=== PATIENT | male | born 1970 | race Caucasian/White ===

== ENCOUNTER → 2017-05-31 | Outpatient (CLI) | payer OTHER ==
[~2017-05-31] MED LIST: ASPI81TA2 PO; ATOR80TA PO; CLOP75 PO; INSU100C6 SQ; ISOS30TA6 PO; METF500T4 PO; METO50 PO; PANT40TA25 PO; RANO500T3 PO; VALS80TA2 PO
[2017-05-31 09:30] LABS: BASOPHILS % (AUTO) 0.1 % (0.0-2.0); EOSINOPHILS % (AUTO) 2.5 % (1.0-6.0); HEMATOCRIT 47.3 % (41-53); HEMOGLOBIN 16.5 g/dL (13.5-17.5); LYMPHOCYTES # (AUTO) 2.3 K/uL (1.0-4.8); LYMPHOCYTES % (AUTO) 25.2 % (22.0-44.0); MEAN CORPUSCULAR HEMOGLOBIN 30.5 pg (26.0-34.0); MEAN CORPUSCULAR HGB CONC 34.9 G/dL (31.0-37.0); MEAN CORPUSCULAR VOLUME 87 fL (80-100); MONOCYTES # (AUTO) 0.6 K/uL (0.1-1.0); MONOCYTES % (AUTO) 6.6 % (2.0-9.0); NEUTROPHILS # (AUTO) 5.9 K/uL (1.8-7.7); NEUTROPHILS % (AUTO) 65.6 % (40.0-70.0); PLATELET COUNT (AUTO) 285 K/uL (150-450); RED BLOOD CELL COUNT(AUTO) 5.41 MIL/uL (4.50-5.90)
[2017-05-31 09:35] LABS: HEMOGLOBIN A1C 10.6 % (4.5-6.2)
[2017-05-31 09:53] LABS: ALANINE AMINOTRANSFERASE 32 U/L (12-78); ALBUMIN 3.6 g/dL (3.4-5.0); ANION GAP 7 mmol/L (8-16); ASPARTATE AMINOTRANSFERASE 16 U/L (15-37); BILIRUBIN,TOTAL 0.7 mg/dL (0.1-1.0); CALCIUM, TOTAL 9.6 mg/dL (8.8-10.5); CARBON DIOXIDE 28 mmol/L (22-29); CHLORIDE 100 mmol/L (98-107); CHOL/HDL RATIO 3.1 (4.2-7.3); CREATININE 0.98 mg/dL (0.60-1.30); GLOMERULAR FILTR. RATE CALC > 60 mL/min (>60); POTASSIUM 4.8 mmol/L (3.5-5.1); SODIUM SERUM 135 mmol/L (136-145); THYROID STIMULATING HORMONE 1.25 uIU/mL (0.36-3.74); TOTAL PROTEIN, SERUM 7.3 g/dL (6.4-8.2); UREA NITROGEN, BLOOD 17 mg/dL (7-18)
== END | disposition home or self-care (01) ==
LOC: LABMN 06:07
PROVIDERS: ATTEND Internal Medicine Cardiovascular Disease
DX: I11.0 Hypertensive heart disease with heart failure (principal); I50.9 Heart failure, unspecified; E11.8 Type 2 diabetes mellitus with unspecified complications
CPT/HCPCS: 82306; 83036; 83735; 84439; 84443

== ENCOUNTER 2017-07-01 15:28 | Emergency (ER) | payer SELFPAY ==
[~2017-07-01] VITALS: Ht 167.6 cm; Wt 100.0 kg
[2017-07-01 16:01] LABS: GLUCOSE,POINT OF CARE 487 MG/DL (70-110)
[2017-07-01] MEDS ORDERED: SODIUM CHLORIDE 0.9% 1,000 ML IV ONE (16:45)
[2017-07-01] MEDS ORDERED: ONDANSETRON HCL 4 MG/2 ML VIAL IVP ONE (16:45)
[2017-07-01 16:50] LABS: BASOPHILS % (AUTO) 0.2 % (0.0-2.0); EOSINOPHILS % (AUTO) 1.5 % (1.0-6.0); HEMATOCRIT 45.3 % (41-53); HEMOGLOBIN 15.6 g/dL (13.5-17.5); LYMPHOCYTES % (AUTO) 22.8 % (22.0-44.0); MEAN CORPUSCULAR HEMOGLOBIN 30.5 pg (26.0-34.0); MEAN CORPUSCULAR HGB CONC 34.3 G/dL (31.0-37.0); MEAN CORPUSCULAR VOLUME 89 fL (80-100); MONOCYTES # (AUTO) 0.5 K/uL (0.1-1.0); MONOCYTES % (AUTO) 5.8 % (2.0-9.0); NEUTROPHILS # (AUTO) 6.1 K/uL (1.8-7.7); NEUTROPHILS % (AUTO) 69.7 % (40.0-70.0); PLATELET COUNT (AUTO) 286 K/uL (150-450); RED CELL DISTRIBUTION WIDTH 13.1 % (11.5-14.5); WHITE BLOOD COUNT (AUTO) 8.7 K/uL (4.5-11.0)
[2017-07-01 16:58] LABS: INR 0.9 (0.9-1.1)
[2017-07-01 17:13] LABS: B-TYPE NATRIURETIC PEPTIDE 16 pg/mL (0-100)
[2017-07-01 17:14] LABS: ANION GAP 11 mmol/L (8-16); CALCIUM, TOTAL 8.8 mg/dL (8.8-10.5); CARBON DIOXIDE 23 mmol/L (22-29); CHLORIDE 99 mmol/L (98-107); CREATININE 1.29 mg/dL (0.60-1.30); GLOMERULAR FILTR. RATE CALC > 60 mL/min (>60); POTASSIUM 4.3 mmol/L (3.5-5.1); SODIUM SERUM 133 mmol/L (136-145); UREA NITROGEN, BLOOD 16 mg/dL (7-18)
[2017-07-01 17:15] LABS: ALANINE AMINOTRANSFERASE 30 U/L (12-78); ALBUMIN 3.3 g/dL (3.4-5.0); ASPARTATE AMINOTRANSFERASE 14 U/L (15-37); BILIRUBIN,TOTAL 0.6 mg/dL (0.1-1.0); CREATINE KINASE, TOTAL 138 U/L (39-308); TOTAL PROTEIN, SERUM 6.8 g/dL (6.4-8.2)
[2017-07-01 17:19] LABS: CREATINE KINASE MB 1.7 ng/mL (0-5)
[2017-07-01] MEDS ORDERED: INSULIN REGULAR, HUMAN 100 UNITS/ML IVP ONE (17:30)
[2017-07-01 18:23] LABS: GLUCOSE,POINT OF CARE 388 MG/DL (70-110)
[2017-07-01 19:20] VITALS: BP 127/71
== END 2017-07-01 19:26 | disposition home or self-care (01) ==
LOC: EMS 15:30
DX: R42 Dizziness and giddiness (principal); E11.65 Type 2 diabetes mellitus with hyperglycemia; I10 Essential (primary) hypertension; I25.10 Atherosclerotic heart disease of native coronary artery without angina pectoris; I25.2 Old myocardial infarction; E78.00 Pure hypercholesterolemia, unspecified; Z79.4 Long term (current) use of insulin; Z79.82 Long term (current) use of aspirin; Z91.018 Allergy to other foods; Z79.899 Other long term (current) drug therapy
CPT/HCPCS: 36415; 71010; 80053; 82550; 82553; 82962; 83880; 84484; 85025; 85610; 85730; 93005; 96361; 96374; 99285; J1815; J2405; J7030

== ENCOUNTER → 2017-11-01 | Outpatient (CLI) | payer OTHER ==
[~2017-11-01] MED LIST changes: -ASPI81TA2 PO; +ASPI81TA39 PO; -INSU100C6 SQ; -PANT40TA25 PO; -RANO500T3 PO
[2017-11-01 09:10] LABS: HEMOGLOBIN A1C 10.4 % (4.5-6.2)
[2017-11-01 09:14] LABS: BASOPHILS % (AUTO) 0.3 % (0.0-2.0); EOSINOPHILS % (AUTO) 2.3 % (1.0-6.0); HEMATOCRIT 47.9 % (41-53); HEMOGLOBIN 16.6 g/dL (13.5-17.5); LYMPHOCYTES # (AUTO) 2.2 K/uL (1.0-4.8); LYMPHOCYTES % (AUTO) 27.2 % (22.0-44.0); MEAN CORPUSCULAR HGB CONC 34.6 G/dL (31.0-37.0); MEAN CORPUSCULAR VOLUME 90 fL (80-100); MONOCYTES # (AUTO) 0.6 K/uL (0.1-1.0); NEUTROPHILS # (AUTO) 5.2 K/uL (1.8-7.7); NEUTROPHILS % (AUTO) 63.2 % (40.0-70.0); PLATELET COUNT (AUTO) 280 K/uL (150-450); RED BLOOD CELL COUNT(AUTO) 5.34 MIL/uL (4.50-5.90); RED CELL DISTRIBUTION WIDTH 13.1 % (11.5-14.5)
[2017-11-01 09:19] LABS: ALANINE AMINOTRANSFERASE 36 U/L (12-78); ALBUMIN 3.5 g/dL (3.4-5.0); ALKALINE PHOSPHATASE 77 U/L (46-116); ANION GAP 12 mmol/L (8-16); ASPARTATE AMINOTRANSFERASE 19 U/L (15-37); BILIRUBIN,TOTAL 0.6 mg/dL (0.1-1.0); CALCIUM, TOTAL 8.9 mg/dL (8.8-10.5); CARBON DIOXIDE 23 mmol/L (22-29); CHLORIDE 100 mmol/L (98-107); CHOL/HDL RATIO 3.5 (4.2-7.3); CHOLESTEROL 138 mg/dL (131-200); CREATININE 0.89 mg/dL (0.60-1.30); GLOMERULAR FILTR. RATE CALC > 60 mL/min (>60); GLUCOSE,RANDOM 376 mg/dL (70-110); HDL CHOLESTEROL 39 mg/dL (40-60); LDL CHOL (CALC.) 40 mg/dL (0-130); POTASSIUM 3.9 mmol/L (3.5-5.1); SODIUM SERUM 135 mmol/L (136-145); TOTAL PROTEIN, SERUM 7.2 g/dL (6.4-8.2); TRIGLYCERIDES 295 mg/dL (15-150); UREA NITROGEN, BLOOD 14 mg/dL (7-18)
== END | disposition home or self-care (01) ==
LOC: LABMN 07:58
PROVIDERS: ATTEND Internal Medicine Cardiovascular Disease
DX: I11.0 Hypertensive heart disease with heart failure (principal); I50.9 Heart failure, unspecified; E11.8 Type 2 diabetes mellitus with unspecified complications; E55.9 Vitamin D deficiency, unspecified
CPT/HCPCS: 83036

== ENCOUNTER → 2018-01-04 | Outpatient (CLI) | payer OTHER ==
[2018-01-04 07:58] LABS: BASOPHILS % (AUTO) 0.3 % (0.0-2.0); HEMOGLOBIN 15.6 g/dL (13.5-17.5); LYMPHOCYTES # (AUTO) 2.4 K/uL (1.0-4.8); MEAN CORPUSCULAR HEMOGLOBIN 30.4 pg (26.0-34.0); MEAN CORPUSCULAR HGB CONC 33.9 G/dL (31.0-37.0); MEAN CORPUSCULAR VOLUME 90 fL (80-100); MONOCYTES # (AUTO) 0.7 K/uL (0.1-1.0); MONOCYTES % (AUTO) 8.5 % (2.0-9.0); NEUTROPHILS # (AUTO) 4.5 K/uL (1.8-7.7); NEUTROPHILS % (AUTO) 58.2 % (40.0-70.0); PLATELET COUNT (AUTO) 290 K/uL (150-450); RED BLOOD CELL COUNT(AUTO) 5.13 MIL/uL (4.50-5.90); RED CELL DISTRIBUTION WIDTH 14.1 % (11.5-14.5)
[2018-01-04 08:27] LABS: ALANINE AMINOTRANSFERASE 26 U/L (12-78); ALBUMIN 3.6 g/dL (3.4-5.0); ALKALINE PHOSPHATASE 55 U/L (46-116); ANION GAP 9 mmol/L (8-16); ASPARTATE AMINOTRANSFERASE 18 U/L (15-37); BILIRUBIN,TOTAL 0.5 mg/dL (0.1-1.0); CALCIUM, TOTAL 9.5 mg/dL (8.8-10.5); CARBON DIOXIDE 28 mmol/L (22-29); CHLORIDE 105 mmol/L (98-107); CHOL/HDL RATIO 2.6 (4.2-7.3); CHOLESTEROL 116 mg/dL (131-200); CREATININE 0.87 mg/dL (0.60-1.30); FREE T4 (FREE THYROXINE) 1.08 ng/dL (0.76-1.46); GLOMERULAR FILTR. RATE CALC > 60 mL/min (>60); GLUCOSE,RANDOM 188 mg/dL (70-110); HDL CHOLESTEROL 44 mg/dL (40-60); LDL CHOL (CALC.) 42 mg/dL (0-130); POTASSIUM 4.7 mmol/L (3.5-5.1); SODIUM SERUM 142 mmol/L (136-145); THYROID STIMULATING HORMONE 2.88 uIU/mL (0.36-3.74); TRIGLYCERIDES 150 mg/dL (15-150); UREA NITROGEN, BLOOD 15 mg/dL (7-18)
[2018-01-04 14:15] LABS: HEMOGLOBIN A1C 9.4 % (4.5-6.2)
== END | disposition home or self-care (01) ==
LOC: LABPV 07:31
PROVIDERS: ATTEND Internal Medicine Cardiovascular Disease
DX: I11.0 Hypertensive heart disease with heart failure (principal); I50.9 Heart failure, unspecified; E11.8 Type 2 diabetes mellitus with unspecified complications; E55.9 Vitamin D deficiency, unspecified; D56.5 Hemoglobin E-beta thalassemia
CPT/HCPCS: 82306; 83036; 83735; 84439; 84443

== ENCOUNTER 2018-06-13 17:47 | Emergency (ER) | payer MEDICAID ==
[~2018-06-13] VITALS: Ht 170.2 cm; Wt 88.6 kg
[~2018-06-13 17:47] MED LIST changes: -METF500T4 PO; +METF500T6 PO; +NITR.4 SL
[2018-06-13 17:58] LABS: GLUCOSE,POINT OF CARE 376 MG/DL (70-110)
[2018-06-13 19:47] LABS: BASOPHILS % (AUTO) 0.4 % (0.0-2.0); EOSINOPHILS % (AUTO) 2.4 % (1.0-6.0); HEMOGLOBIN 16.4 g/dL (13.5-17.5); LYMPHOCYTES # (AUTO) 3.4 K/uL (1.0-4.8); LYMPHOCYTES % (AUTO) 37.9 % (22.0-44.0); MEAN CORPUSCULAR HEMOGLOBIN 31.5 pg (26.0-34.0); MEAN CORPUSCULAR VOLUME 90 fL (80-100); MONOCYTES # (AUTO) 0.6 K/uL (0.1-1.0); NEUTROPHILS # (AUTO) 4.6 K/uL (1.8-7.7); NEUTROPHILS % (AUTO) 52.3 % (40.0-70.0); PLATELET COUNT (AUTO) 293 K/uL (150-450); RED BLOOD CELL COUNT(AUTO) 5.22 MIL/uL (4.50-5.90); RED CELL DISTRIBUTION WIDTH 13.6 % (11.5-14.5)
[2018-06-13 20:16] LABS: CREATINE KINASE MB 1.5 ng/mL (0-5); CREATINE KINASE, TOTAL 184 U/L (39-308)
[2018-06-13] MEDS ORDERED: KETOROLAC TROMETHAMINE 60 MG/2 ML VIAL IM ONE (20:45)
[2018-06-13 20:46] LABS: C-REACTIVE PROTEIN QUANT < 0.05 mg/dL (0.00-0.30)
[2018-06-13 21:12] VITALS: BP 132/76
[2018-06-13 21:57] LABS: ERYTHROCYTE SEDIMENTATION RATE 4 MM/HR (0-15)
== END 2018-06-13 21:23 | disposition home or self-care (01) ==
LOC: EMS 17:48
DX: S76.111A Strain of right quadriceps muscle, fascia and tendon, initial encounter (principal); I25.10 Atherosclerotic heart disease of native coronary artery without angina pectoris; E11.9 Type 2 diabetes mellitus without complications; E78.00 Pure hypercholesterolemia, unspecified; I10 Essential (primary) hypertension; I25.2 Old myocardial infarction; Z91.02 Food additives allergy status; Z79.82 Long term (current) use of aspirin; Z79.84 Long term (current) use of oral hypoglycemic drugs; X58.XXXA Exposure to other specified factors, initial encounter; Y93.89 Activity, other specified; Y92.89 Other specified places as the place of occurrence of the external cause; Y99.8 Other external cause status
CPT/HCPCS: 36415; 73552; 82550; 82553; 82962; 85025; 85651; 86140; 96372; 99285; J1885

== ENCOUNTER → 2018-09-21 | Outpatient (CLI) | payer OTHER ==
[~2018-09-21] MED LIST changes: +METF-960 PO; -METF500T6 PO
[2018-09-21 09:53] LABS: BASOPHILS % (AUTO) 0.2 % (0.0-2.0); EOSINOPHILS % (AUTO) 4.2 % (1.0-6.0); HEMATOCRIT 49.3 % (41-53); HEMOGLOBIN 17.2 g/dL (13.5-17.5); LYMPHOCYTES # (AUTO) 2.6 K/uL (1.0-4.8); LYMPHOCYTES % (AUTO) 33.8 % (22.0-44.0); MEAN CORPUSCULAR HEMOGLOBIN 31.2 pg (26.0-34.0); MEAN CORPUSCULAR HGB CONC 34.9 G/dL (31.0-37.0); MEAN CORPUSCULAR VOLUME 89 fL (80-100); MONOCYTES # (AUTO) 0.5 K/uL (0.1-1.0); MONOCYTES % (AUTO) 7.2 % (2.0-9.0); NEUTROPHILS # (AUTO) 4.2 K/uL (1.8-7.7); NEUTROPHILS % (AUTO) 54.6 % (40.0-70.0); PLATELET COUNT (AUTO) 299 K/uL (150-450); RED BLOOD CELL COUNT(AUTO) 5.52 MIL/uL (4.50-5.90); RED CELL DISTRIBUTION WIDTH 13.1 % (11.5-14.5)
[2018-09-21 09:59] LABS: HEMOGLOBIN A1C 10.2 % (4.5-6.2)
[2018-09-21 10:06] LABS: ANION GAP 9 mmol/L (8-16); CALCIUM, TOTAL 8.4 mg/dL (8.8-10.5); CARBON DIOXIDE 24 mmol/L (22-29); CHLORIDE 100 mmol/L (98-107); CREATININE 0.91 mg/dL (0.60-1.30); GLOMERULAR FILTR. RATE CALC > 60 mL/min (>60); GLUCOSE,RANDOM 293 mg/dL (70-110); SODIUM SERUM 133 mmol/L (136-145); UREA NITROGEN, BLOOD 15 mg/dL (7-18)
[2018-09-21 10:13] LABS: ALANINE AMINOTRANSFERASE 25 U/L (12-78); ALBUMIN 3.3 g/dL (3.4-5.0); ALKALINE PHOSPHATASE 71 U/L (46-116); ASPARTATE AMINOTRANSFERASE 11 U/L (15-37); BILIRUBIN,TOTAL 0.4 mg/dL (0.1-1.0); CHOLESTEROL 209 mg/dL (131-200); FREE T4 (FREE THYROXINE) 1.15 ng/dL (0.76-1.46); HDL CHOLESTEROL 42 mg/dL (40-60); THYROID STIMULATING HORMONE 2.19 uIU/mL (0.36-3.74); TOTAL PROTEIN, SERUM 6.8 g/dL (6.4-8.2); TRIGLYCERIDES 615 mg/dL (15-150)
== END | disposition home or self-care (01) ==
LOC: LABMN 08:23
PROVIDERS: ATTEND Internal Medicine Cardiovascular Disease
DX: E11.8 Type 2 diabetes mellitus with unspecified complications (principal); E55.9 Vitamin D deficiency, unspecified; D56.5 Hemoglobin E-beta thalassemia; I11.0 Hypertensive heart disease with heart failure; I50.9 Heart failure, unspecified
CPT/HCPCS: 82306; 83036; 83735; 84439; 84443

== ENCOUNTER 2018-10-22 12:17 | Emergency (ER) | payer MEDICAID, OTHER ==
[~2018-10-22] VITALS: Ht 170.2 cm; Wt 86.4 kg
[2018-10-22 12:35] LABS: GLUCOSE,POINT OF CARE 391 MG/DL (70-110)
[2018-10-22 13:31] LABS: BASOPHILS % (AUTO) 0.3 % (0.0-2.0); HEMATOCRIT 49.9 % (41-53); HEMOGLOBIN 17.5 g/dL (13.5-17.5); LYMPHOCYTES # (AUTO) 2.2 K/uL (1.0-4.8); LYMPHOCYTES % (AUTO) 36.2 % (22.0-44.0); MEAN CORPUSCULAR HEMOGLOBIN 31.5 pg (26.0-34.0); MEAN CORPUSCULAR VOLUME 90 fL (80-100); MONOCYTES # (AUTO) 0.6 K/uL (0.1-1.0); MONOCYTES % (AUTO) 10.7 % (2.0-9.0); NEUTROPHILS # (AUTO) 2.9 K/uL (1.8-7.7); NEUTROPHILS % (AUTO) 48.8 % (40.0-70.0); PLATELET COUNT (AUTO) 273 K/uL (150-450); RED BLOOD CELL COUNT(AUTO) 5.54 MIL/uL (4.50-5.90); RED CELL DISTRIBUTION WIDTH 12.9 % (11.5-14.5)
[2018-10-22] MEDS ORDERED: ONDANSETRON HCL 4 MG/2 ML VIAL IVP ONE (13:45)
[2018-10-22] MEDS ORDERED: SODIUM CHLORIDE 0.9% 1,000 ML IV ONE (13:45)
[2018-10-22] MEDS ORDERED: MORPHINE SULFATE 4 MG/ML SYRINGE IVP ONE (13:45)
[2018-10-22 13:47] LABS: INR 0.9 (0.9-1.1); PROTHROMBIN TIME 9.5 SEC (9.4-11.6)
[2018-10-22 13:49] LABS: ALANINE AMINOTRANSFERASE 32 U/L (12-78); ALBUMIN 3.2 g/dL (3.4-5.0); ALKALINE PHOSPHATASE 77 U/L (46-116); ANION GAP 9 mmol/L (8-16); ASPARTATE AMINOTRANSFERASE 22 U/L (15-37); BILIRUBIN,TOTAL 0.5 mg/dL (0.1-1.0); CALCIUM, TOTAL 9.2 mg/dL (8.8-10.5); CARBON DIOXIDE 24 mmol/L (22-29); CHLORIDE 102 mmol/L (98-107); CREATININE 0.84 mg/dL (0.60-1.30); GLOMERULAR FILTR. RATE CALC > 60 mL/min (>60); LIPASE 196 U/L (73-393); POTASSIUM 4.4 mmol/L (3.5-5.1); SODIUM SERUM 135 mmol/L (136-145)
[2018-10-22 13:53] LABS: GLUCOSE,RANDOM 407 mg/dL (70-110)
[2018-10-22 13:55] LABS: UREA NITROGEN, BLOOD 13 mg/dL (7-18)
[2018-10-22] MEDS ORDERED: IOVERSOL 350 MG/ML 100 ML VIAL ONE (14:29)
[2018-10-22] MEDS ORDERED: SODIUM CHLORIDE 0.9% 100 ML ONE (14:29)
[2018-10-22 15:29] LABS: GLUCOSE,POINT OF CARE 283 MG/DL (70-110)
[2018-10-22 16:22] LABS: APPEARANCE,URINE CLEAR (CLEAR); BILIRUBIN,URINE NEGATIVE (NEGATIVE); GLUCOSE, URINE (UA) >=1000 mg/dL (NEGATIVE); KETONES,URINE NEGATIVE (NEGATIVE); LEUKOCYTE ESTERASE ,URINE NEGATIVE (NEGATIVE); NITRATE,URINE NEGATIVE (NEGATIVE); OCCULT BLOOD,URINE NEGATIVE (NEGATIVE); PROTEIN,URINE SEE CONFIRM (NEGATIVE); UROBILINOGEN,URINE 0.2 mg/dL (<=1.0)
[2018-10-22] MEDS ORDERED: KETOROLAC TROMETHAMINE 30 MG/ML VIAL IVP ONE (16:45)
[2018-10-22] MEDS ORDERED: MetroNIDAZOLE 250 MG TABLET PO ONE (16:45)
[2018-10-22] MEDS ORDERED: CIPROFLOXACIN HCL 250 MG TABLET PO ONE (16:45)
[2018-10-22 17:04] VITALS: BP 126/69
[2018-10-22 17:19] LABS: SULFOSALICYLIC ACID,URINE 2+ (Negative)
[2018-10-22 17:20] LABS: BACTERIA,URINE Few /HPF (None Seen); RBC,URINE None Seen /HPF (0-2)
[2018-10-22 17:21] LABS: SQUAMOUS EPITHELIAL CELL,UR Moderate /LPF (None Seen)
== END 2018-10-22 17:44 | disposition home or self-care (01) ==
LOC: EMS 12:18
DX: K57.92 Diverticulitis of intestine, part unspecified, without perforation or abscess without bleeding (principal); I10 Essential (primary) hypertension; E78.00 Pure hypercholesterolemia, unspecified; E11.9 Type 2 diabetes mellitus without complications; I25.10 Atherosclerotic heart disease of native coronary artery without angina pectoris; Z91.018 Allergy to other foods; Z79.82 Long term (current) use of aspirin; Z79.84 Long term (current) use of oral hypoglycemic drugs
CPT/HCPCS: 36415; 74177; 80053; 81001; 82948; 82962; 83690; 85025; 85610; 85730; 93005; 96374; 96375; 99284; J1885; J2270; J2405; J7050; Q9967

== ENCOUNTER 2018-10-25 23:10 | Emergency (ER) | payer MEDICAID ==
[~2018-10-25] VITALS: Ht 172.7 cm; Wt 89.1 kg
[2018-10-25] MEDS ORDERED: METR250T PO (23:26)
[2018-10-25] MEDS ORDERED: ONDA4SOL2 PO (23:26)
[2018-10-25] MEDS ORDERED: CIPR500S4 PO (23:26)
[2018-10-25] MEDS ORDERED: TRAM50TA4 PO (23:26)
[2018-10-25 23:29] LABS: GLUCOSE,POINT OF CARE 319 MG/DL (70-110)
[2018-10-26] MEDS ORDERED: MORPHINE SULFATE 4 MG/ML SYRINGE IVP ONE ×2 (00:15→02:45)
[2018-10-26] MEDS ORDERED: ONDANSETRON HCL 4 MG/2 ML VIAL IVP ONE (00:15)
[2018-10-26 00:21] LABS: APPEARANCE,URINE CLEAR (CLEAR); BILIRUBIN,URINE NEGATIVE (NEGATIVE); GLUCOSE, URINE (UA) >=1000 mg/dL (NEGATIVE); KETONES,URINE NEGATIVE (NEGATIVE); LEUKOCYTE ESTERASE ,URINE NEGATIVE (NEGATIVE); NITRATE,URINE NEGATIVE (NEGATIVE); OCCULT BLOOD,URINE TRACE (NEGATIVE); PH,URINE 5.5 (5.0-8.0); PROTEIN,URINE SEE CONFIRM (NEGATIVE); UROBILINOGEN,URINE 0.2 mg/dL (<=1.0)
[2018-10-26 00:26] LABS: BACTERIA,URINE None Seen /HPF (None Seen); WBC,URINE 0-2 /HPF (0-5)
[2018-10-26 00:27] LABS: SQUAMOUS EPITHELIAL CELL,UR Few /LPF (None Seen)
[2018-10-26 00:28] LABS: SULFOSALICYLIC ACID,URINE 2+ (Negative)
[2018-10-26 00:36] LABS: BASOPHILS % (AUTO) 0.2 % (0.0-2.0); EOSINOPHILS % (AUTO) 3.7 % (1.0-6.0); MONOCYTES # (AUTO) 0.6 K/uL (0.1-1.0)
[2018-10-26 00:43] LABS: HEMATOCRIT 50.6 % (41-53); LYMPHOCYTES # (AUTO) 3.2 K/uL (1.0-4.8); LYMPHOCYTES % (AUTO) 41.1 % (22.0-44.0); MEAN CORPUSCULAR HGB CONC 35.8 G/dL (31.0-37.0); MEAN CORPUSCULAR VOLUME 90 fL (80-100); MONOCYTES % (AUTO) 8.3 % (2.0-9.0); NEUTROPHILS # (AUTO) 3.6 K/uL (1.8-7.7); NEUTROPHILS % (AUTO) 46.7 % (40.0-70.0); PLATELET COUNT (AUTO) 311 K/uL (150-450); RED BLOOD CELL COUNT(AUTO) 5.65 MIL/uL (4.50-5.90)
[2018-10-26 00:48] LABS: ANION GAP 5 mmol/L (8-16); CARBON DIOXIDE 29 mmol/L (22-29); CHLORIDE 99 mmol/L (98-107); CREATININE 1.12 mg/dL (0.60-1.30); GLOMERULAR FILTR. RATE CALC > 60 mL/min (>60); GLUCOSE,RANDOM 333 mg/dL (70-110); POTASSIUM 4.1 mmol/L (3.5-5.1); SODIUM SERUM 133 mmol/L (136-145); UREA NITROGEN, BLOOD 17 mg/dL (7-18)
[2018-10-26 00:53] LABS: ALANINE AMINOTRANSFERASE 34 U/L (12-78); ALBUMIN 3.4 g/dL (3.4-5.0); ALKALINE PHOSPHATASE 81 U/L (46-116); BILIRUBIN,TOTAL 0.4 mg/dL (0.1-1.0); LIPASE 453 U/L (73-393); TOTAL PROTEIN, SERUM 7.1 g/dL (6.4-8.2)
[2018-10-26 01:04] LABS: ASPARTATE AMINOTRANSFERASE 23 U/L (15-37)
[2018-10-26] MEDS ORDERED: KETOROLAC TROMETHAMINE 30 MG/ML VIAL IVP ONE (03:45)
[2018-10-26 03:52] VITALS: BP 125/91
== END 2018-10-26 04:13 | disposition home or self-care (01) ==
LOC: EMS 23:12 → EEVIPCON 23:12 → EMS 10-26 04:13
DX: K57.92 Diverticulitis of intestine, part unspecified, without perforation or abscess without bleeding (principal); N20.0 Calculus of kidney; I25.10 Atherosclerotic heart disease of native coronary artery without angina pectoris; E11.9 Type 2 diabetes mellitus without complications; I10 Essential (primary) hypertension; I25.2 Old myocardial infarction; E78.00 Pure hypercholesterolemia, unspecified; Z91.018 Allergy to other foods; Z79.82 Long term (current) use of aspirin; Z79.84 Long term (current) use of oral hypoglycemic drugs
CPT/HCPCS: 36415; 74176; 80053; 81001; 82962; 83690; 85025; 96374; 96375; 96376; 99284; J1885; J2270; J2405

== ENCOUNTER 2018-12-29 15:40 | Inpatient (IN) | payer SELFPAY ==
[~2018-12-29] VITALS: Ht 167.6 cm; Wt 87.9 kg
[~2018-12-29 15:40] MED LIST changes: +CIPR500S4 PO; -CLOP75 PO; +CLOP75TA3 PO; +METR250T PO; +ONDA4SOL2 PO; +TRAM50TA4 PO; -VALS80TA2 PO
[2018-12-29 15:59] LABS: GLUCOSE,POINT OF CARE 462 MG/DL (70-110)
[2018-12-29] MEDS ORDERED: INSULIN REGULAR, HUMAN 100 UNITS/ML SQ ONE (16:30)
[2018-12-29] MEDS ORDERED: NITROGLYCERIN 2% (1 GM=INCH) PACKET TP ONE (16:30)
[2018-12-29 16:39] LABS: EOSINOPHILS % (AUTO) 2.4 % (1.0-6.0); HEMATOCRIT 48.2 % (41-53); HEMOGLOBIN 16.9 g/dL (13.5-17.5); LYMPHOCYTES # (AUTO) 3.7 K/uL (1.0-4.8); LYMPHOCYTES % (AUTO) 35.7 % (22.0-44.0); MEAN CORPUSCULAR HEMOGLOBIN 30.9 pg (26.0-34.0); MEAN CORPUSCULAR VOLUME 88 fL (80-100); MONOCYTES # (AUTO) 0.7 K/uL (0.1-1.0); MONOCYTES % (AUTO) 6.8 % (2.0-9.0); NEUTROPHILS # (AUTO) 5.6 K/uL (1.8-7.7); NEUTROPHILS % (AUTO) 54.1 % (40.0-70.0); RED BLOOD CELL COUNT(AUTO) 5.48 MIL/uL (4.50-5.90); RED CELL DISTRIBUTION WIDTH 12.9 % (11.5-14.5)
[2018-12-29 16:58] LABS: ANION GAP 9 mmol/L (8-16); CALCIUM, TOTAL 10.2 mg/dL (8.8-10.5); CARBON DIOXIDE 26 mmol/L (22-29); CHLORIDE 100 mmol/L (98-107); CREATININE 0.92 mg/dL (0.60-1.30); GLOMERULAR FILTR. RATE CALC > 60 mL/min (>60); GLUCOSE,RANDOM 393 mg/dL (70-110); POTASSIUM 4.5 mmol/L (3.5-5.1); SODIUM SERUM 135 mmol/L (136-145); UREA NITROGEN, BLOOD 15 mg/dL (7-18)
[2018-12-29 17:06] LABS: PLATELET COUNT (AUTO) 249 K/uL (150-450)
[2018-12-29 17:15] LABS: B-TYPE NATRIURETIC PEPTIDE 42 pg/mL (0-100)
[2018-12-29 17:23] LABS: ALANINE AMINOTRANSFERASE 26 U/L (12-78); ALBUMIN 3.2 g/dL (3.4-5.0); ALKALINE PHOSPHATASE 78 U/L (46-116); ASPARTATE AMINOTRANSFERASE 19 U/L (15-37); BILIRUBIN,TOTAL 0.6 mg/dL (0.1-1.0); CREATINE KINASE, TOTAL ONLY 145 U/L (39-308)
[2018-12-29] MEDS ORDERED: MORPHINE SULFATE 4 MG/ML SYRINGE IVP ONE (17:30)
[2018-12-29] MEDS ORDERED: ONDANSETRON HCL 4 MG/2 ML VIAL IVP ONE (17:30)
[2018-12-29 17:48] LABS: GLUCOSE,POINT OF CARE 236 MG/DL (70-110)
[2018-12-29 17:52] LABS: INR 0.9 (0.9-1.1); PROTHROMBIN TIME 9.4 SEC (9.4-11.6)
[2018-12-29] MEDS ORDERED: 0.9% SODIUM CHLORIDE 10 ML SYRINGE IVP PRN (18:30)
[2018-12-29] MEDS ORDERED: ONDANSETRON HCL 4 MG/2 ML VIAL IVP PRN (18:30)
[2018-12-29] MEDS ORDERED: ACETAMINOPHEN 325 MG TABLET PO PRN (18:30)
[2018-12-29 20:03] LABS: APPEARANCE,URINE CLEAR (CLEAR); BILIRUBIN,URINE NEGATIVE (NEGATIVE); GLUCOSE, URINE (UA) >=1000 mg/dL (NEGATIVE); KETONES,URINE NEGATIVE (NEGATIVE); LEUKOCYTE ESTERASE ,URINE NEGATIVE (NEGATIVE); NITRATE,URINE NEGATIVE (NEGATIVE); OCCULT BLOOD,URINE NEGATIVE (NEGATIVE); PH,URINE 5.5 (5.0-8.0); PROTEIN,URINE SEE CONFIRM (NEGATIVE); UROBILINOGEN,URINE 0.2 mg/dL (<=1.0)
[2018-12-29 20:27] LABS: SULFOSALICYLIC ACID,URINE 2+ (Negative)
[2018-12-29 20:28] VITALS: BP 143/81
[2018-12-29 20:28] LABS: BACTERIA,URINE None Seen /HPF (None Seen); RBC,URINE None Seen /HPF (0-2); SQUAMOUS EPITHELIAL CELL,UR None Seen /LPF (None Seen); WBC,URINE 0-2 /HPF (0-5)
[2018-12-29] MEDS ORDERED: DEXTROSE 50%-WATER 25 GM/50 ML SYRINGE IVP PRN (20:45)
[2018-12-29] MEDS ORDERED: ATORVASTATIN CALCIUM 40 MG TABLET PO SCH (21:00)
[2018-12-29] MEDS: INSULIN LISPRO 100 UNITS/ML SQ PRN (21:57)
[2018-12-29] MEDS: METOPROLOL TARTRATE 25 MG TABLET PO SCH (21:57)
[2018-12-29] MEDS ORDERED: HYDROCODONE/ACETAMINOPHEN 5-325 MG TABLET PO PRN (22:15)
[2018-12-29 23:51] VITALS: BP 128/73
[2018-12-30 04:40] VITALS: BP 111/71
[2018-12-30] MEDS: ACETAMINOPHEN 325 MG TABLET PO PRN ×2 (05:47→11:50)
[2018-12-30] MEDS: INSULIN LISPRO 100 UNITS/ML SQ PRN ×3 (05:48→17:21)
[2018-12-30 06:11] LABS: BASOPHILS % (AUTO) 0.2 % (0.0-2.0); EOSINOPHILS % (AUTO) 3.8 % (1.0-6.0); HEMATOCRIT 43.2 % (41-53); HEMOGLOBIN 15.1 g/dL (13.5-17.5); LYMPHOCYTES # (AUTO) 3.7 K/uL (1.0-4.8); LYMPHOCYTES % (AUTO) 45.9 % (22.0-44.0); MEAN CORPUSCULAR HEMOGLOBIN 30.6 pg (26.0-34.0); MEAN CORPUSCULAR VOLUME 88 fL (80-100); MONOCYTES # (AUTO) 0.6 K/uL (0.1-1.0); MONOCYTES % (AUTO) 7.7 % (2.0-9.0); NEUTROPHILS # (AUTO) 3.4 K/uL (1.8-7.7); NEUTROPHILS % (AUTO) 42.4 % (40.0-70.0); PLATELET COUNT (AUTO) 262 K/uL (150-450); RED BLOOD CELL COUNT(AUTO) 4.93 MIL/uL (4.50-5.90)
[2018-12-30 06:15] LABS: HEMOGLOBIN A1C 11.1 % (4.5-6.2)
[2018-12-30 06:33] LABS: ALANINE AMINOTRANSFERASE 17 U/L (12-78); ALBUMIN 2.4 g/dL (3.4-5.0); ALKALINE PHOSPHATASE 57 U/L (46-116); ANION GAP 8 mmol/L (8-16); ASPARTATE AMINOTRANSFERASE 20 U/L (15-37); BILIRUBIN,TOTAL 0.6 mg/dL (0.1-1.0); CALCIUM, TOTAL 8.7 mg/dL (8.8-10.5); CARBON DIOXIDE 26 mmol/L (22-29); CHLORIDE 101 mmol/L (98-107); CREATININE 0.82 mg/dL (0.60-1.30); GLOMERULAR FILTR. RATE CALC > 60 mL/min (>60); GLUCOSE,RANDOM 182 mg/dL (70-110); POTASSIUM 3.7 mmol/L (3.5-5.1); SODIUM SERUM 135 mmol/L (136-145); TOTAL PROTEIN, SERUM 5.8 g/dL (6.4-8.2); UREA NITROGEN, BLOOD 14 mg/dL (7-18)
[2018-12-30 07:38] VITALS: BP 120/75
[2018-12-30] MEDS: MetFORMIN HCL 500 MG TABLET PO SCH ×2 (07:54→17:20)
[2018-12-30] MEDS: METOPROLOL TARTRATE 25 MG TABLET PO SCH (07:54)
[2018-12-30] MEDS ORDERED: LISINOPRIL 10 MG TABLET PO SCH (09:00)
[2018-12-30] MEDS ORDERED: CLOPIDOGREL BISULFATE 75 MG TABLET PO SCH (09:00)
[2018-12-30] MEDS ORDERED: ASPIRIN 81 MG CHEWABLE TABLET PO SCH (09:00)
[2018-12-30 11:05] VITALS: BP 124/77
[2018-12-30 15:17] VITALS: BP 111/64
[2018-12-30 20:39] LABS: GLUCOMETER DEV NAME(LOC) 5S.2; GLUCOSE,POINT OF CARE 226 MG/DL (70-110)
[2018-12-31 04:23] LABS: GLUCOMETER DEV NAME(LOC) 5N.2; GLUCOSE,POINT OF CARE 195 MG/DL (70-110)
[2018-12-31 04:23] LABS: GLUCOMETER DEV NAME(LOC) 5N.2; GLUCOSE,POINT OF CARE 212 MG/DL (70-110)
[2018-12-31 04:23] LABS: GLUCOMETER DEV NAME(LOC) 5N.2; GLUCOSE,POINT OF CARE 273 MG/DL (70-110)
== END 2018-12-30 18:00 | disposition home or self-care (01) | DRG 313 ==
LOC: EMS 15:40 → 5N 19:01
PROVIDERS: ADMIT Internal Medicine; ATTEND Internal Medicine
DX: R07.9 Chest pain, unspecified (principal); I25.10 Atherosclerotic heart disease of native coronary artery without angina pectoris; I10 Essential (primary) hypertension; E66.9 Obesity, unspecified; E78.00 Pure hypercholesterolemia, unspecified; F17.210 Nicotine dependence, cigarettes, uncomplicated; E78.5 Hyperlipidemia, unspecified; E11.9 Type 2 diabetes mellitus without complications; Z83.3 Family history of diabetes mellitus; Z82.49 Family history of ischemic heart disease and other diseases of the circulatory system; Z79.4 Long term (current) use of insulin; Z95.5 Presence of coronary angioplasty implant and graft; I25.2 Old myocardial infarction; Z68.31 Body mass index [BMI] 31.0-31.9, adult
CPT/HCPCS: 83036; 93005; 93306; 96372; 96374; 96375; G0378; J1815; J2270; J2405

== ENCOUNTER 2019-12-07 05:40 | Day surgery (SDC) | payer MEDICAID ==
[~2019-12-07] VITALS: Ht 170.2 cm; Wt 94.1 kg
[~2019-12-07 05:40] MED LIST changes: -CIPR500S4 PO; +INSLAN SQ; +INSU100V SQ; +LOSA25TA71 PO; -METR250T PO; -NITR.4 SL; +NITR0.4T52 SL; -ONDA4SOL2 PO; -TRAM50TA4 PO
[2019-12-07] MEDS ORDERED: SODIUM CHLORIDE 0.9% 1,000 ML IV ONE (06:00)
[2019-12-07] MEDS ORDERED: SODIUM CHLORIDE 0.9% 1,000 ML ONE (06:29)
[2019-12-07 07:11] LABS: GLUCOMETER DEV NAME(LOC) SDS.; GLUCOSE,POINT OF CARE 243 MG/DL (70-110)
[2019-12-07 08:48] LABS: GLUCOMETER DEV NAME(LOC) SDS.; GLUCOSE,POINT OF CARE 228 MG/DL (70-110)
[2019-12-07] MEDS ORDERED: PROPOFOL 1% 20 ML VIAL IVP ONE (12:00)
[2019-12-07] MEDS ORDERED: LIDOCAINE/PF 2% 5 ML SYRINGE IVP ONE (12:00)
== END 2019-12-07 09:35 | disposition home or self-care (01) ==
LOC: SURGERY 05:40 → EEVIPCON 07:30 → SURGERY 09:35
PROVIDERS: ATTEND Student in an Organized Health Care Education/Training Program
DX: R93.5 Abnormal findings on diagnostic imaging of other abdominal regions, including retroperitoneum (principal); R10.13 Epigastric pain; D12.8 Benign neoplasm of rectum; D12.2 Benign neoplasm of ascending colon; K63.5 Polyp of colon; K57.30 Diverticulosis of large intestine without perforation or abscess without bleeding; K29.50 Unspecified chronic gastritis without bleeding; K20.8 Other esophagitis; K44.9 Diaphragmatic hernia without obstruction or gangrene; K31.89 Other diseases of stomach and duodenum; K64.8 Other hemorrhoids; I10 Essential (primary) hypertension; E11.9 Type 2 diabetes mellitus without complications; K21.9 Gastro-esophageal reflux disease without esophagitis; I25.2 Old myocardial infarction; F17.290 Nicotine dependence, other tobacco product, uncomplicated; E66.3 Overweight; Z68.32 Body mass index [BMI] 32.0-32.9, adult; Z79.899 Other long term (current) drug therapy; Z95.5 Presence of coronary angioplasty implant and graft; Z79.01 Long term (current) use of anticoagulants; Z79.4 Long term (current) use of insulin
CPT/HCPCS: 45385; 45380; 43239; 82962; 88305; 88312; 88313; C1769; J2704; J3490; J7030

== ENCOUNTER → 2019-12-12 | Outpatient (CLI) | payer MEDICAID ==
[2019-12-12 10:26] LABS: APPEARANCE,URINE CLEAR (CLEAR); BILIRUBIN,URINE NEGATIVE (NEGATIVE); GLUCOSE, URINE (UA) 250 mg/dL (NEGATIVE); KETONES,URINE NEGATIVE (NEGATIVE); LEUKOCYTE ESTERASE ,URINE NEGATIVE (NEGATIVE); NITRATE,URINE NEGATIVE (NEGATIVE); OCCULT BLOOD,URINE SMALL (NEGATIVE); PH,URINE 5.5 (5.0-8.0); PROTEIN,URINE SEE CONFIRM (NEGATIVE); UROBILINOGEN,URINE 0.2 mg/dL (<=1.0)
[2019-12-12 10:39] LABS: SULFOSALICYLIC ACID,URINE 3+ (Negative)
[2019-12-12 10:40] LABS: BACTERIA,URINE None Seen /HPF (None Seen); FINE GRANULAR CASTS,URINE 0-2 /LPF (None Seen); HYALINE CASTS, URINE 0-2 /LPF (None Seen); SQUAMOUS EPITHELIAL CELL,UR Few /LPF (None Seen); WBC,URINE None Seen /HPF (0-5)
== END | disposition home or self-care (01) ==
LOC: LABMN 09:43
PROVIDERS: ATTEND General Practice
DX: Z00.01 Encounter for general adult medical examination with abnormal findings (principal); I10 Essential (primary) hypertension
CPT/HCPCS: 82043; 82570; 84154; 84403

== ENCOUNTER → 2019-12-12 | Outpatient (CLI) | payer MEDICAID ==
[2019-12-12 10:24] LABS: BASOPHILS % (AUTO) 0.5 % (0.0-2.0); EOSINOPHILS % (AUTO) 3.3 % (1.0-6.0); HEMATOCRIT 47.6 % (41-53); HEMOGLOBIN 16.4 g/dL (13.5-17.5); LYMPHOCYTES # (AUTO) 1.9 K/uL (1.0-4.8); LYMPHOCYTES % (AUTO) 32.6 % (22.0-44.0); MEAN CORPUSCULAR HEMOGLOBIN 30.4 pg (26.0-34.0); MEAN CORPUSCULAR HGB CONC 34.5 G/dL (31.0-37.0); MEAN CORPUSCULAR VOLUME 88 fL (80-100); MONOCYTES # (AUTO) 0.4 K/uL (0.1-1.0); MONOCYTES % (AUTO) 6.7 % (2.0-9.0); NEUTROPHILS # (AUTO) 3.3 K/uL (1.8-7.7); NEUTROPHILS % (AUTO) 56.9 % (40.0-70.0); PLATELET COUNT (AUTO) 269 K/uL (150-450); RED BLOOD CELL COUNT(AUTO) 5.41 MIL/uL (4.50-5.90); RED CELL DISTRIBUTION WIDTH 13.2 % (11.5-14.5)
[2019-12-12 10:49] LABS: HEMOGLOBIN A1C 12.4 % (3.8-5.6)
[2019-12-12 10:55] LABS: B-TYPE NATRIURETIC PEPTIDE 42 pg/mL (0-100)
[2019-12-12 11:00] LABS: ALANINE AMINOTRANSFERASE 28 U/L (12-78); ALBUMIN 2.9 g/dL (3.4-5.0); ALKALINE PHOSPHATASE 81 U/L (46-116); ANION GAP 8 mmol/L (8-16); ASPARTATE AMINOTRANSFERASE 15 U/L (15-37); BILIRUBIN,TOTAL 0.5 mg/dL (0.1-1.0); CARBON DIOXIDE 25 mmol/L (22-29); CHLORIDE 101 mmol/L (98-107); CHOL/HDL RATIO 6.7 (4.2-7.3); CHOLESTEROL 253 mg/dL (131-200); CREATININE 0.94 mg/dL (0.60-1.30); FREE T4 (FREE THYROXINE) 1.28 ng/dL (0.76-1.46); GLOMERULAR FILTR. RATE CALC > 60 mL/min (>60); GLUCOSE,RANDOM 351 mg/dL (70-110); HDL CHOLESTEROL 38 mg/dL (40-60); POTASSIUM 3.9 mmol/L (3.5-5.1); SODIUM SERUM 134 mmol/L (136-145); THYROID STIMULATING HORMONE 2.63 uIU/mL (0.36-3.74); TOTAL PROTEIN, SERUM 6.8 g/dL (6.4-8.2); TRIGLYCERIDES 669 mg/dL (15-150); UREA NITROGEN, BLOOD 11 mg/dL (7-18)
== END | disposition home or self-care (01) ==
LOC: LABMN 09:23
PROVIDERS: ATTEND Internal Medicine Cardiovascular Disease
DX: I11.0 Hypertensive heart disease with heart failure (principal); I50.9 Heart failure, unspecified; E11.8 Type 2 diabetes mellitus with unspecified complications; E55.9 Vitamin D deficiency, unspecified; D56.5 Hemoglobin E-beta thalassemia
CPT/HCPCS: 82306; 83036; 83735; 84439; 84443

== ENCOUNTER 2021-02-03 20:06 | Emergency (ER) | payer MEDICAID ==
[~2021-02-03] VITALS: Ht 172.7 cm; Wt 97.7 kg
[~2021-02-03 20:06] MED LIST changes: -CLOP75TA3 PO; +CLOP75TA60 PO; -ISOS30TA6 PO; +ISOS60TA77 PO; +LOSA25TA21 PO; -LOSA25TA71 PO
[2021-02-03 21:07] VITALS: BP 142/88
== END 2021-02-03 22:00 | disposition left against medical advice (07) ==
LOC: EMS 20:10
DX: M79.604 Pain in right leg (principal); M79.605 Pain in left leg; Z53.21 Procedure and treatment not carried out due to patient leaving prior to being seen by health care provider

== ENCOUNTER → 2021-02-26 | Outpatient (CLI) | payer MEDICAID ==
[2021-02-26 10:52] LABS: BASOPHILS % (AUTO) 0.3 % (0.0-2.0); EOSINOPHILS % (AUTO) 1.6 % (1.0-6.0); HEMOGLOBIN 15.9 g/dL (13.5-17.5); LYMPHOCYTES # (AUTO) 2.2 K/uL (1.0-4.8); MEAN CORPUSCULAR HEMOGLOBIN 30.6 pg (26.0-34.0); MEAN CORPUSCULAR HGB CONC 34.6 G/dL (31.0-37.0); MEAN CORPUSCULAR VOLUME 89 fL (80-100); MONOCYTES # (AUTO) 0.5 K/uL (0.1-1.0); MONOCYTES % (AUTO) 6.2 % (2.0-9.0); NEUTROPHILS % (AUTO) 63.9 % (40.0-70.0); PLATELET COUNT (AUTO) 327 K/uL (150-450); RED BLOOD CELL COUNT(AUTO) 5.19 MIL/uL (4.50-5.90); RED CELL DISTRIBUTION WIDTH 12.8 % (11.5-14.5)
[2021-02-26 11:18] LABS: B-TYPE NATRIURETIC PEPTIDE 45 pg/mL (0-100)
[2021-02-26 11:20] LABS: HEMOGLOBIN A1C 13.6 % (3.8-5.6)
[2021-02-26 11:23] LABS: ALANINE AMINOTRANSFERASE 23 U/L (12-78); ALKALINE PHOSPHATASE 77 U/L (46-116); ANION GAP 11 mmol/L (8-16); ASPARTATE AMINOTRANSFERASE < 5 U/L (15-37); BILIRUBIN,TOTAL 0.5 mg/dL (0.1-1.0); CALCIUM, TOTAL 8.5 mg/dL (8.8-10.5); CARBON DIOXIDE 22 mmol/L (22-29); CHLORIDE 100 mmol/L (98-107); CHOL/HDL RATIO 6.1 (4.2-7.3); CHOLESTEROL 275 mg/dL (131-200); CREATININE 0.94 mg/dL (0.60-1.30); FREE T4 (FREE THYROXINE) 1.22 ng/dL (0.76-1.46); GLOMERULAR FILTR. RATE CALC > 60 mL/min (>60); GLUCOSE,RANDOM 355 mg/dL (70-110); HDL CHOLESTEROL 45 mg/dL (40-60); POTASSIUM 3.6 mmol/L (3.5-5.1); SODIUM SERUM 133 mmol/L (136-145); THYROID STIMULATING HORMONE 2.83 uIU/mL (0.36-3.74); TOTAL PROTEIN, SERUM 6.5 g/dL (6.4-8.2); TRIGLYCERIDES 687 mg/dL (15-150); UREA NITROGEN, BLOOD 21 mg/dL (7-18)
== END | disposition home or self-care (01) ==
LOC: LABMN 09:55
PROVIDERS: ATTEND Internal Medicine Cardiovascular Disease
DX: I11.0 Hypertensive heart disease with heart failure (principal); I50.9 Heart failure, unspecified; E11.8 Type 2 diabetes mellitus with unspecified complications; E55.9 Vitamin D deficiency, unspecified; D56.5 Hemoglobin E-beta thalassemia
CPT/HCPCS: 80053; 80061; 82306; 83036; 83735; 83880; 84439; 84443; 85025

== ENCOUNTER 2021-11-24 22:50 | Inpatient (IN) | payer MEDICAID ==
[~2021-11-24] VITALS: Ht 170.2 cm; Wt 97.7 kg
[~2021-11-24 22:50] MED LIST changes: +LOSA-381 PO; -LOSA25TA21 PO; +METF-1211 PO; -METF-960 PO
[2021-11-25] MEDS ORDERED: PIPERACILLIN/TAZO 3.375 GM/D5W 50 ML IV ONE (00:30)
[2021-11-25] MEDS ORDERED: VANCOMYCIN HCL 1 GM/D5% WATER 200 ML IV ONE (00:30)
[2021-11-25 00:46] LABS: BASOPHILS % (AUTO) 0.5 % (0.0-2.0); EOSINOPHILS % (AUTO) 2.4 % (1.0-6.0); HEMATOCRIT 44.1 % (41-53); HEMOGLOBIN 15.3 g/dL (13.5-17.5); LYMPHOCYTES # (AUTO) 3.3 K/uL (1.0-4.8); LYMPHOCYTES % (AUTO) 30.6 % (22.0-44.0); MEAN CORPUSCULAR HEMOGLOBIN 30.1 pg (26.0-34.0); MEAN CORPUSCULAR HGB CONC 34.7 G/dL (31.0-37.0); MEAN CORPUSCULAR VOLUME 87 fL (80-100); MONOCYTES # (AUTO) 0.8 K/uL (0.1-1.0); MONOCYTES % (AUTO) 7.2 % (2.0-9.0); NEUTROPHILS # (AUTO) 6.4 K/uL (1.8-7.7); NEUTROPHILS % (AUTO) 59.3 % (40.0-70.0); PLATELET COUNT (AUTO) 437 K/uL (150-450); RED BLOOD CELL COUNT(AUTO) 5.08 MIL/uL (4.50-5.90); RED CELL DISTRIBUTION WIDTH 12.4 % (11.5-14.5)
[2021-11-25 00:53] LABS: ANION GAP 8 mmol/L (8-16); CALCIUM, TOTAL 9.2 mg/dL (8.8-10.5); CARBON DIOXIDE 28 mmol/L (22-29); CHLORIDE 100 mmol/L (98-107); CREATININE 1.21 mg/dL (0.60-1.30); GLOMERULAR FILTR. RATE CALC > 60 mL/min (>60); GLUCOSE,RANDOM 373 mg/dL (70-110); SODIUM SERUM 136 mmol/L (136-145); UREA NITROGEN, BLOOD 17 mg/dL (7-18)
[2021-11-25 00:59] LABS: ALANINE AMINOTRANSFERASE 18 U/L (12-78); ALBUMIN 2.8 g/dL (3.4-5.0); ALKALINE PHOSPHATASE 107 U/L (46-116); BILIRUBIN,TOTAL 0.3 mg/dL (0.1-1.0); TOTAL PROTEIN, SERUM 7.9 g/dL (6.4-8.2)
[2021-11-25 01:09] LABS: ASPARTATE AMINOTRANSFERASE < 5 U/L (15-37)
[2021-11-25] MEDS ORDERED: MORPHINE SULFATE 2 MG/ML SYRINGE IVP ONE (02:30)
[2021-11-25] MEDS ORDERED: DEXTROSE 50%-WATER 25 GM/50 ML SYRINGE IVP PRN ×2 (03:00→18:00)
[2021-11-25] MEDS ORDERED: HYDROCODONE/ACETAMINOPHEN 5-325 MG TABLET PO PRN (03:00)
[2021-11-25] MEDS ORDERED: ONDANSETRON HCL 4 MG/2 ML VIAL IVP PRN ×2 (03:00→03:15)
[2021-11-25] MEDS ORDERED: ACETAMINOPHEN 325 MG TABLET PO PRN (03:00)
[2021-11-25 03:45] LABS: COVID AG,FIA SOURCE NASAL SWAB
[2021-11-25] MEDS: RINGERS SOLUTION,LACTATED 1,000 ML IV SCH (04:18)
[2021-11-25 07:56] LABS: GLUCOSE,POINT OF CARE 274 MG/DL (70-110)
[2021-11-25] MEDS: INSULIN LISPRO 100 UNITS/ML SQ PRN ×4 (08:00→20:55)
[2021-11-25] MEDS: VANCOMYCIN HCL 1.25 GM in DEXTROSE 5%-WATER 250 ML IV SCH ×2 (08:01→20:57)
[2021-11-25] MEDS: HEPARIN SODIUM,PORCINE 5,000 UNITS/ML VIAL SQ SCH ×2 (08:01→15:42)
[2021-11-25] MEDS: PIPERACILLIN/TAZO 3.375 GM/D5W 50 ML IV SCH ×3 (08:01→20:45)
[2021-11-25] MEDS: MORPHINE SULFATE 2 MG/ML SYRINGE IVP PRN ×2 (08:03→12:43)
[2021-11-25] MEDS: INSULIN GLARGINE,HUM.REC.ANLOG 100 UNITS/ML SQ SCH ×3 (09:00→20:54)
[2021-11-25] MEDS ORDERED: SODIUM CHLORIDE 0.9% 250 ML IV ONE (10:41)
[2021-11-25 10:42] VITALS: BP 178/113
[2021-11-25 10:46] LABS: GLUCOMETER DEV NAME(LOC) 6N.1; GLUCOSE,POINT OF CARE 345 MG/DL (70-110)
[2021-11-25 12:17] VITALS: BP 156/78
[2021-11-25] MEDS ORDERED: INFLUENZA VIRUS VACCINE QVS 2021-22 (6MO+)/PF 60 MCG/0.5 ML SYRINGE IM. ONE (15:30)
[2021-11-25 15:41] VITALS: BP 140/84
[2021-11-25] MEDS ORDERED: PNEUMOCOCCAL VACCINE POLYVALENT 0.5 ML VIAL [PPSV23] IM. ONE (16:45)
[2021-11-25 17:27] LABS: GLUCOMETER DEV NAME(LOC) 6N.2; GLUCOSE,POINT OF CARE 344 MG/DL (70-110)
[2021-11-25] MEDS: MetFORMIN HCL 500 MG TABLET PO SCH (17:31)
[2021-11-25 18:43] VITALS: BP 163/87
[2021-11-25 19:25] VITALS: BP 165/96
[2021-11-25 19:56] LABS: GLUCOMETER DEV NAME(LOC) 6N.1; GLUCOSE,POINT OF CARE 240 MG/DL (70-110)
[2021-11-25] MEDS: METOPROLOL TARTRATE 50 MG TABLET PO SCH (20:46)
[2021-11-25] MEDS: ACETAMINOPHEN 325 MG TABLET PO PRN (20:46)
[2021-11-25 23:52] VITALS: BP 144/91
[2021-11-26] MEDS: PIPERACILLIN/TAZO 3.375 GM/D5W 50 ML IV SCH ×3 (02:16→20:10)
[2021-11-26] MEDS: RINGERS SOLUTION,LACTATED 1,000 ML IV SCH ×2 (02:17→20:11)
[2021-11-26 03:41] VITALS: BP 102/63
[2021-11-26 05:52] LABS: GLUCOMETER DEV NAME(LOC) 6N.2; GLUCOSE,POINT OF CARE 160 MG/DL (70-110)
[2021-11-26] MEDS ORDERED: RINGERS SOLUTION,LACTATED 1,000 ML IV ONE (06:15)
[2021-11-26] MEDS ORDERED: BUPIVACAINE HCL/PF 0.5% 30 ML VIAL ONE (06:39)
[2021-11-26] MEDS ORDERED: LIDOCAINE/PF 1% 2 ML VIAL ONE (06:39)
[2021-11-26] MEDS ORDERED: LIDOCAINE/PF 1% 30 ML VIAL ONE (06:40)
[2021-11-26 06:50] LABS: ANION GAP 4 mmol/L (8-16); CALCIUM, TOTAL 8.1 mg/dL (8.8-10.5); CARBON DIOXIDE 29 mmol/L (22-29); CHLORIDE 103 mmol/L (98-107); CREATININE 0.94 mg/dL (0.60-1.30); GLOMERULAR FILTR. RATE CALC > 60 mL/min (>60); GLUCOSE,RANDOM 138 mg/dL (70-110); POTASSIUM 4.1 mmol/L (3.5-5.1); SODIUM SERUM 136 mmol/L (136-145); UREA NITROGEN, BLOOD 14 mg/dL (7-18); VANCOMYCIN,RANDOM 21.8 mcg/mL (25.0-50.0)
[2021-11-26] MEDS ORDERED: HYDROmorphone 2 MG/ML VIAL IVP PRN (07:00)
[2021-11-26] MEDS ORDERED: MEPERIDINE-PF 25 MG/ML VIAL IVP PRN (07:00)
[2021-11-26] MEDS ORDERED: FentaNYL CITRATE PF 100 MCG/2 ML VIAL IVP PRN (07:00)
[2021-11-26] MEDS ORDERED: BUPIVACAINE HCL/PF 0.5% 30 ML VIAL PERC ONE (07:02)
[2021-11-26] MEDS ORDERED: LIDOCAINE/PF 1% 30 ML VIAL PERC ONE (07:02)
[2021-11-26] MEDS ORDERED: SODIUM CL IRRIG SOLN BAG 3,000 ML IRRIG ONE (07:08)
[2021-11-26] MEDS ORDERED: 0.9% SODIUM CHLORIDE 1000 ML IRRIG SOLUTION BAG IRRIG ONE (07:30)
[2021-11-26] MEDS: VANCOMYCIN HCL 1.25 GM in DEXTROSE 5%-WATER 250 ML IV SCH (08:00)
[2021-11-26] MEDS: INSULIN GLARGINE,HUM.REC.ANLOG 100 UNITS/ML SQ SCH ×2 (09:00→20:32)
[2021-11-26 10:04] VITALS: BP 195/108
[2021-11-26] MEDS: METOPROLOL TARTRATE 50 MG TABLET PO SCH ×2 (10:12→20:09)
[2021-11-26] MEDS: ASPIRIN 81 MG CHEWABLE TABLET PO SCH (10:12)
[2021-11-26] MEDS: LOSARTAN POTASSIUM 25 MG TABLET PO SCH (10:12)
[2021-11-26] MEDS: ISOSORBIDE MONONITRATE 60 MG ER TABLET PO SCH (10:12)
[2021-11-26 10:42] LABS: GLUCOMETER DEV NAME(LOC) 6N.2; GLUCOSE,POINT OF CARE 149 MG/DL (70-110)
[2021-11-26 12:48] VITALS: BP 144/84
[2021-11-26 13:36] LABS: GLUCOMETER DEV NAME(LOC) 6N.1; GLUCOSE,POINT OF CARE 207 MG/DL (70-110)
[2021-11-26] MEDS: OXYGEN THERAPY IH SCH ×2 (13:42→20:00)
[2021-11-26] MEDS: INSULIN LISPRO 100 UNITS/ML SQ PRN ×2 (13:43→20:33)
[2021-11-26] MEDS: MORPHINE SULFATE 2 MG/ML SYRINGE IVP PRN ×2 (14:50→23:56)
[2021-11-26 15:56] VITALS: BP 125/63
[2021-11-26 18:02] LABS: GLUCOMETER DEV NAME(LOC) 6N.1; GLUCOSE,POINT OF CARE 166 MG/DL (70-110)
[2021-11-26] MEDS: MetFORMIN HCL 500 MG TABLET PO SCH ×2 (18:05→18:09)
[2021-11-26] MEDS ORDERED: VANCOMYCIN HCL 1.5 GM in DEXTROSE 5%-WATER 250 ML IV SCH (20:00)
[2021-11-26] MEDS: ACETAMINOPHEN 325 MG TABLET PO PRN (20:09)
[2021-11-26 20:36] VITALS: BP 135/78
[2021-11-26 21:31] LABS: GLUCOMETER DEV NAME(LOC) 6N.1; GLUCOSE,POINT OF CARE 176 MG/DL (70-110)
[2021-11-27] MEDS: PIPERACILLIN/TAZO 3.375 GM/D5W 50 ML IV SCH ×4 (03:22→20:33)
[2021-11-27 04:58] VITALS: BP 123/65
[2021-11-27] MEDS ORDERED: PROPOFOL 1% 20 ML VIAL IVP ONE (06:38)
[2021-11-27] MEDS ORDERED: MIDAZOLAM HCL 2 MG/2 ML VIAL IVP ONE (06:38)
[2021-11-27] MEDS ORDERED: KETAMINE HCL 50 MG/ML 10 ML VIAL IVP ONE (06:38)
[2021-11-27] MEDS ORDERED: FentaNYL CITRATE PF 100 MCG/2 ML VIAL IVP ONE (06:38)
[2021-11-27 07:15] LABS: CALCIUM, TOTAL 8.1 mg/dL (8.8-10.5); CREATININE 1.97 mg/dL (0.60-1.30)
[2021-11-27 07:16] LABS: GLUCOMETER DEV NAME(LOC) 6N.1; GLUCOSE,POINT OF CARE 130 MG/DL (70-110)
[2021-11-27 07:40] VITALS: BP 123/69
[2021-11-27] MEDS: MetFORMIN HCL 500 MG TABLET PO SCH ×2 (08:47→18:33)
[2021-11-27] MEDS: LOSARTAN POTASSIUM 25 MG TABLET PO SCH (09:33)
[2021-11-27] MEDS: ISOSORBIDE MONONITRATE 60 MG ER TABLET PO SCH (09:33)
[2021-11-27] MEDS: METOPROLOL TARTRATE 50 MG TABLET PO SCH ×2 (09:33→20:34)
[2021-11-27] MEDS: ASPIRIN 81 MG CHEWABLE TABLET PO SCH (09:33)
[2021-11-27] MEDS: INSULIN GLARGINE,HUM.REC.ANLOG 100 UNITS/ML SQ SCH ×2 (10:40→20:38)
[2021-11-27 10:46] LABS: GLUCOMETER DEV NAME(LOC) 6N.1; GLUCOSE,POINT OF CARE 156 MG/DL (70-110)
[2021-11-27] MEDS: VANCOMYCIN HCL 1 GM/D5% WATER 200 ML IV SCH ×2 (10:48→20:34)
[2021-11-27 12:42] LABS: GLUCOMETER DEV NAME(LOC) 6N.1; GLUCOSE,POINT OF CARE 148 MG/DL (70-110)
[2021-11-27] MEDS: INSULIN LISPRO 100 UNITS/ML SQ PRN ×2 (13:06→20:39)
[2021-11-27 15:40] VITALS: BP 125/67
[2021-11-27] MEDS: RINGERS SOLUTION,LACTATED 1,000 ML IV SCH (16:20)
[2021-11-27 17:42] LABS: GLUCOMETER DEV NAME(LOC) 6N.2; GLUCOSE,POINT OF CARE 107 MG/DL (70-110)
[2021-11-27] MEDS: MORPHINE SULFATE 2 MG/ML SYRINGE IVP PRN (18:43)
[2021-11-27] MEDS: OXYGEN THERAPY IH SCH (20:00)
[2021-11-27 20:10] VITALS: BP 115/66
[2021-11-27 23:47] LABS: GLUCOMETER DEV NAME(LOC) 6N.1; GLUCOSE,POINT OF CARE 173 MG/DL (70-110)
[2021-11-28] MEDS: PIPERACILLIN/TAZO 3.375 GM/D5W 50 ML IV SCH ×2 (02:02→08:13)
[2021-11-28] MEDS: MORPHINE SULFATE 2 MG/ML SYRINGE IVP PRN (02:52)
[2021-11-28 05:34] VITALS: BP 147/73
[2021-11-28] MEDS: RINGERS SOLUTION,LACTATED 1,000 ML IV SCH (06:49)
[2021-11-28 07:31] LABS: GLUCOMETER DEV NAME(LOC) 6N.2; GLUCOSE,POINT OF CARE 107 MG/DL (70-110)
[2021-11-28] MEDS: ASPIRIN 81 MG CHEWABLE TABLET PO SCH (08:13)
[2021-11-28] MEDS: ISOSORBIDE MONONITRATE 60 MG ER TABLET PO SCH (08:13)
[2021-11-28] MEDS: METOPROLOL TARTRATE 50 MG TABLET PO SCH ×2 (08:14→21:00)
[2021-11-28] MEDS: LOSARTAN POTASSIUM 25 MG TABLET PO SCH (08:14)
[2021-11-28] MEDS: MetFORMIN HCL 500 MG TABLET PO SCH ×2 (08:14→17:09)
[2021-11-28 08:25] VITALS: BP 109/56
[2021-11-28] MEDS: INSULIN GLARGINE,HUM.REC.ANLOG 100 UNITS/ML SQ SCH ×2 (08:29→22:56)
[2021-11-28] MEDS: OXYGEN THERAPY IH SCH (08:36)
[2021-11-28] MEDS: ACETAMINOPHEN 325 MG TABLET PO PRN ×3 (08:58→23:44)
[2021-11-28] MEDS: VANCOMYCIN HCL 1 GM/D5% WATER 200 ML IV SCH (08:59)
[2021-11-28 09:00] LABS: CALCIUM, TOTAL 8.2 mg/dL (8.8-10.5); CREATININE 3.36 mg/dL (0.60-1.30); POTASSIUM 4.2 mmol/L (3.5-5.1); VANCOMYCIN,RANDOM 48.3 mcg/mL (25.0-50.0)
[2021-11-28] MEDS ORDERED: VANCOMYCIN HCL 1 GM/D5% WATER 200 ML IV PRN (10:15)
[2021-11-28] MEDS: INSULIN LISPRO 100 UNITS/ML SQ PRN (11:32)
[2021-11-28 13:36] LABS: GLUCOMETER DEV NAME(LOC) 6N.2; GLUCOSE,POINT OF CARE 169 MG/DL (70-110)
[2021-11-28] MEDS: PIPERACILLIN SODIUM/TAZOBACTAM 2.25 GM in DEXTROSE 5%-WATER 50 ML IV SCH ×2 (14:42→21:00)
[2021-11-28 16:31] VITALS: BP 120/68
[2021-11-28 18:26] LABS: GLUCOMETER DEV NAME(LOC) 6N.1; GLUCOSE,POINT OF CARE 132 MG/DL (70-110)
[2021-11-28 19:45] VITALS: BP 137/75
[2021-11-28 20:21] VITALS: BP 136/74
[2021-11-28 20:46] LABS: GLUCOMETER DEV NAME(LOC) 6N.1; GLUCOSE,POINT OF CARE 149 MG/DL (70-110)
[2021-11-29 05:05] VITALS: BP 130/59
[2021-11-29 06:06] LABS: GLUCOMETER DEV NAME(LOC) 6N.2; GLUCOSE,POINT OF CARE 88 MG/DL (70-110)
[2021-11-29 07:06] LABS: CALCIUM, TOTAL 8.5 mg/dL (8.8-10.5); CREATININE 3.92 mg/dL (0.60-1.30)
[2021-11-29 07:22] LABS: VANCOMYCIN,RANDOM 52.4 mcg/mL (25.0-50.0)
[2021-11-29] MEDS: MetFORMIN HCL 500 MG TABLET PO SCH ×3 (08:20→18:13)
[2021-11-29 09:23] VITALS: BP 130/84
[2021-11-29] MEDS: ISOSORBIDE MONONITRATE 60 MG ER TABLET PO SCH (09:36)
[2021-11-29] MEDS: METOPROLOL TARTRATE 50 MG TABLET PO SCH ×2 (09:37→21:26)
[2021-11-29] MEDS: ASPIRIN 81 MG CHEWABLE TABLET PO SCH (09:37)
[2021-11-29] MEDS: PIPERACILLIN SODIUM/TAZOBACTAM 2.25 GM in DEXTROSE 5%-WATER 50 ML IV SCH ×2 (09:39→09:50)
[2021-11-29 10:01] LABS: GLUCOMETER DEV NAME(LOC) 6N.1; GLUCOSE,POINT OF CARE 120 MG/DL (70-110)
[2021-11-29] MEDS: RINGERS SOLUTION,LACTATED 1,000 ML IV SCH (10:09)
[2021-11-29] MEDS: INSULIN GLARGINE,HUM.REC.ANLOG 100 UNITS/ML SQ SCH ×2 (10:11→21:32)
[2021-11-29] MEDS: LOSARTAN POTASSIUM 25 MG TABLET PO SCH (10:40)
[2021-11-29] MEDS ORDERED: SODIUM CHLORIDE 0.9% 1,000 ML IV ONE (11:45)
[2021-11-29] MEDS: INSULIN LISPRO 100 UNITS/ML SQ PRN (12:19)
[2021-11-29 12:21] LABS: GLUCOMETER DEV NAME(LOC) 6N.1; GLUCOSE,POINT OF CARE 94 MG/DL (70-110)
[2021-11-29] MEDS: CefTRIAXone 1 GM/DEXTROSE 50 ML IV SCH (12:43)
[2021-11-29 13:08] VITALS: BP 128/74
[2021-11-29 17:25] VITALS: BP 112/62
[2021-11-29 18:26] LABS: GLUCOMETER DEV NAME(LOC) 6N.2; GLUCOSE,POINT OF CARE 100 MG/DL (70-110)
[2021-11-29] MEDS: OXYGEN THERAPY IH SCH (20:00)
[2021-11-29 20:04] VITALS: BP 142/78
[2021-11-29] MEDS: ACETAMINOPHEN 325 MG TABLET PO PRN (21:26)
[2021-11-30 04:46] VITALS: BP 124/74
[2021-11-30 06:56] LABS: GLUCOMETER DEV NAME(LOC) 6N.2; GLUCOSE,POINT OF CARE 77 MG/DL (70-110)
[2021-11-30 06:56] LABS: GLUCOMETER DEV NAME(LOC) 6N.1; GLUCOSE,POINT OF CARE 165 MG/DL (70-110)
[2021-11-30 07:03] LABS: CALCIUM, TOTAL 8.5 mg/dL (8.8-10.5); CREATININE 4.13 mg/dL (0.60-1.30); POTASSIUM 4.5 mmol/L (3.5-5.1)
[2021-11-30] MEDS: MetFORMIN HCL 500 MG TABLET PO SCH ×2 (08:00→17:52)
[2021-11-30] MEDS: OXYGEN THERAPY IH SCH ×2 (08:00→20:00)
[2021-11-30] MEDS: ISOSORBIDE MONONITRATE 60 MG ER TABLET PO SCH (09:50)
[2021-11-30] MEDS: LOSARTAN POTASSIUM 25 MG TABLET PO SCH (09:50)
[2021-11-30] MEDS: METOPROLOL TARTRATE 50 MG TABLET PO SCH ×2 (09:50→21:11)
[2021-11-30] MEDS: ASPIRIN 81 MG CHEWABLE TABLET PO SCH (09:50)
[2021-11-30] MEDS: INSULIN GLARGINE,HUM.REC.ANLOG 100 UNITS/ML SQ SCH ×2 (09:55→21:00)
[2021-11-30 10:11] LABS: GLUCOMETER DEV NAME(LOC) 6N.2; GLUCOSE,POINT OF CARE 150 MG/DL (70-110)
[2021-11-30 10:46] VITALS: BP 178/95
[2021-11-30] MEDS: CefTRIAXone 1 GM/DEXTROSE 50 ML IV SCH (12:16)
[2021-11-30] MEDS ORDERED: SODIUM CHLORIDE 0.9% 1,000 ML IV ONE (12:45)
[2021-11-30 13:06] LABS: GLUCOMETER DEV NAME(LOC) 6N.1; GLUCOSE,POINT OF CARE 115 MG/DL (70-110)
[2021-11-30 13:41] VITALS: BP 185/95
[2021-11-30] MEDS: HydrALAZINE HCL 25 MG TABLET PO SCH ×2 (13:52→21:10)
[2021-11-30 16:38] VITALS: BP 160/86
[2021-11-30] MEDS: ACETAMINOPHEN 325 MG TABLET PO PRN (17:25)
[2021-11-30 17:31] LABS: GLUCOMETER DEV NAME(LOC) 6N.2; GLUCOSE,POINT OF CARE 104 MG/DL (70-110)
[2021-11-30 19:45] VITALS: BP 164/80
[2021-11-30 20:32] LABS: GLUCOMETER DEV NAME(LOC) 6N.1; GLUCOSE,POINT OF CARE 130 MG/DL (70-110)
[2021-12-01 05:30] VITALS: BP 163/82
[2021-12-01 05:46] LABS: GLUCOMETER DEV NAME(LOC) 6N.1; GLUCOSE,POINT OF CARE 91 MG/DL (70-110)
[2021-12-01 07:57] LABS: BASOPHILS % (AUTO) 0.1 % (0.0-2.0); EOSINOPHILS % (AUTO) 2.5 % (1.0-6.0); HEMATOCRIT 35.9 % (41-53); HEMOGLOBIN 12.3 g/dL (13.5-17.5); LYMPHOCYTES # (AUTO) 1.2 K/uL (1.0-4.8); LYMPHOCYTES % (AUTO) 16.8 % (22.0-44.0); MEAN CORPUSCULAR HEMOGLOBIN 29.9 pg (26.0-34.0); MEAN CORPUSCULAR HGB CONC 34.3 G/dL (31.0-37.0); MEAN CORPUSCULAR VOLUME 87 fL (80-100); MONOCYTES # (AUTO) 0.8 K/uL (0.1-1.0); NEUTROPHILS % (AUTO) 69.6 % (40.0-70.0); PLATELET COUNT (AUTO) 355 K/uL (150-450); RED BLOOD CELL COUNT(AUTO) 4.12 MIL/uL (4.50-5.90); RED CELL DISTRIBUTION WIDTH 12.8 % (11.5-14.5)
[2021-12-01] MEDS: OXYGEN THERAPY IH SCH ×2 (08:00→20:00)
[2021-12-01 08:04] LABS: CREATININE 4.11 mg/dL (0.60-1.30); POTASSIUM 4.5 mmol/L (3.5-5.1)
[2021-12-01 08:05] LABS: CALCIUM, TOTAL 8.7 mg/dL (8.8-10.5)
[2021-12-01] MEDS: MetFORMIN HCL 500 MG TABLET PO SCH ×2 (08:20→17:47)
[2021-12-01 08:46] VITALS: BP 168/84
[2021-12-01] MEDS: ISOSORBIDE MONONITRATE 60 MG ER TABLET PO SCH (09:16)
[2021-12-01] MEDS: METOPROLOL TARTRATE 50 MG TABLET PO SCH ×2 (09:17→20:13)
[2021-12-01] MEDS: ASPIRIN 81 MG CHEWABLE TABLET PO SCH (09:17)
[2021-12-01] MEDS: HydrALAZINE HCL 25 MG TABLET PO SCH ×2 (09:17→20:13)
[2021-12-01] MEDS: INSULIN GLARGINE,HUM.REC.ANLOG 100 UNITS/ML SQ SCH ×2 (09:18→20:11)
[2021-12-01 09:40] LABS: GLUCOMETER DEV NAME(LOC) 6N.1; GLUCOSE,POINT OF CARE 113 MG/DL (70-110)
[2021-12-01] MEDS ORDERED: SODIUM CHLORIDE 0.9% 1,000 ML IV ONE (10:00)
[2021-12-01 11:50] VITALS: BP 165/89
[2021-12-01 12:11] LABS: GLUCOMETER DEV NAME(LOC) 6N.2; GLUCOSE,POINT OF CARE 91 MG/DL (70-110)
[2021-12-01] MEDS: CefTRIAXone 1 GM/DEXTROSE 50 ML IV SCH (12:21)
[2021-12-01 16:14] VITALS: BP 159/76
[2021-12-01 19:30] VITALS: BP 121/91
[2021-12-01] MEDS: INSULIN LISPRO 100 UNITS/ML SQ PRN (20:12)
[2021-12-01 21:01] LABS: GLUCOMETER DEV NAME(LOC) 6N.2; GLUCOSE,POINT OF CARE 102 MG/DL (70-110)
[2021-12-01 21:01] LABS: GLUCOMETER DEV NAME(LOC) 6N.2; GLUCOSE,POINT OF CARE 165 MG/DL (70-110)
[2021-12-02 04:20] VITALS: BP 146/77
[2021-12-02] MEDS: MetFORMIN HCL 500 MG TABLET PO SCH ×2 (06:06→17:30)
[2021-12-02 07:11] LABS: GLUCOMETER DEV NAME(LOC) 6N.1; GLUCOSE,POINT OF CARE 91 MG/DL (70-110)
[2021-12-02] MEDS: OXYGEN THERAPY IH SCH ×2 (08:00→20:00)
[2021-12-02] MEDS: ISOSORBIDE MONONITRATE 60 MG ER TABLET PO SCH (08:23)
[2021-12-02] MEDS: METOPROLOL TARTRATE 50 MG TABLET PO SCH ×2 (08:24→20:52)
[2021-12-02] MEDS: HydrALAZINE HCL 25 MG TABLET PO SCH ×2 (08:24→20:52)
[2021-12-02] MEDS: INSULIN GLARGINE,HUM.REC.ANLOG 100 UNITS/ML SQ SCH ×2 (08:24→20:53)
[2021-12-02] MEDS: ASPIRIN 81 MG CHEWABLE TABLET PO SCH (08:24)
[2021-12-02 08:31] LABS: BASOPHILS % (AUTO) 0.2 % (0.0-2.0); EOSINOPHILS % (AUTO) 2.2 % (1.0-6.0); HEMATOCRIT 35.4 % (41-53); HEMOGLOBIN 12.1 g/dL (13.5-17.5); LYMPHOCYTES # (AUTO) 1.3 K/uL (1.0-4.8); LYMPHOCYTES % (AUTO) 17.2 % (22.0-44.0); MEAN CORPUSCULAR HEMOGLOBIN 29.4 pg (26.0-34.0); MEAN CORPUSCULAR HGB CONC 34.1 G/dL (31.0-37.0); MEAN CORPUSCULAR VOLUME 86 fL (80-100); MONOCYTES # (AUTO) 0.9 K/uL (0.1-1.0); MONOCYTES % (AUTO) 11.4 % (2.0-9.0); NEUTROPHILS # (AUTO) 5.3 K/uL (1.8-7.7); PLATELET COUNT (AUTO) 375 K/uL (150-450); RED CELL DISTRIBUTION WIDTH 12.7 % (11.5-14.5)
[2021-12-02 08:38] VITALS: BP 152/71
[2021-12-02 08:43] LABS: CALCIUM, TOTAL 8.5 mg/dL (8.8-10.5); CREATININE 3.94 mg/dL (0.60-1.30); POTASSIUM 4.7 mmol/L (3.5-5.1)
[2021-12-02] MEDS ORDERED: SODIUM CHLORIDE 0.9% 1,000 ML IV ONE (10:00)
[2021-12-02] MEDS: CefTRIAXone 1 GM/DEXTROSE 50 ML IV SCH (11:53)
[2021-12-02 12:47] VITALS: BP 176/90
[2021-12-02 14:24] VITALS: BP 129/66
[2021-12-02 16:31] LABS: GLUCOMETER DEV NAME(LOC) 6N.1; GLUCOSE,POINT OF CARE 108 MG/DL (70-110)
[2021-12-02 19:46] VITALS: BP 143/86
[2021-12-02 21:06] LABS: GLUCOMETER DEV NAME(LOC) 6N.2; GLUCOSE,POINT OF CARE 131 MG/DL (70-110)
[2021-12-02 21:06] LABS: GLUCOMETER DEV NAME(LOC) 6N.2; GLUCOSE,POINT OF CARE 95 MG/DL (70-110)
[2021-12-03] VITALS (8 sets, daily range): BP systolic 132–183; BP diastolic 72–99
[2021-12-03 06:11] LABS: GLUCOMETER DEV NAME(LOC) 6N.2; GLUCOSE,POINT OF CARE 89 MG/DL (70-110)
[2021-12-03 07:40] LABS: BASOPHILS % (AUTO) 0.2 % (0.0-2.0); EOSINOPHILS % (AUTO) 3.6 % (1.0-6.0); HEMATOCRIT 34.7 % (41-53); HEMOGLOBIN 11.8 g/dL (13.5-17.5); LYMPHOCYTES # (AUTO) 1.6 K/uL (1.0-4.8); LYMPHOCYTES % (AUTO) 22.7 % (22.0-44.0); MEAN CORPUSCULAR HEMOGLOBIN 29.4 pg (26.0-34.0); MEAN CORPUSCULAR HGB CONC 33.9 G/dL (31.0-37.0); MEAN CORPUSCULAR VOLUME 87 fL (80-100); MONOCYTES # (AUTO) 0.8 K/uL (0.1-1.0); MONOCYTES % (AUTO) 11.2 % (2.0-9.0); NEUTROPHILS # (AUTO) 4.4 K/uL (1.8-7.7); NEUTROPHILS % (AUTO) 62.3 % (40.0-70.0); PLATELET COUNT (AUTO) 367 K/uL (150-450); RED CELL DISTRIBUTION WIDTH 13.1 % (11.5-14.5)
[2021-12-03 07:58] LABS: CALCIUM, TOTAL 8.2 mg/dL (8.8-10.5); CREATININE 3.95 mg/dL (0.60-1.30); POTASSIUM 4.4 mmol/L (3.5-5.1)
[2021-12-03] MEDS: OXYGEN THERAPY IH SCH ×2 (08:00→20:00)
[2021-12-03] MEDS: INSULIN GLARGINE,HUM.REC.ANLOG 100 UNITS/ML SQ SCH ×2 (08:36→21:23)
[2021-12-03] MEDS: ISOSORBIDE MONONITRATE 60 MG ER TABLET PO SCH (08:37)
[2021-12-03] MEDS: METOPROLOL TARTRATE 50 MG TABLET PO SCH ×2 (08:38→20:25)
[2021-12-03] MEDS: ASPIRIN 81 MG CHEWABLE TABLET PO SCH (08:38)
[2021-12-03] MEDS: MetFORMIN HCL 500 MG TABLET PO SCH ×2 (08:38→16:35)
[2021-12-03] MEDS: HydrALAZINE HCL 25 MG TABLET PO SCH (08:38)
[2021-12-03] MEDS ORDERED: HydrALAZINE HCL 25 MG TABLET PO ONE (10:15)
[2021-12-03] MEDS ORDERED: ALTEPLASE 2 MG VIAL IVCATH ONE (11:15)
[2021-12-03] MEDS ORDERED: SODIUM CHLORIDE 0.9% 500 ML IV ONE (11:15)
[2021-12-03] MEDS: CefTRIAXone 1 GM/DEXTROSE 50 ML IV SCH (12:03)
[2021-12-03 12:07] LABS: GLUCOMETER DEV NAME(LOC) 6N.2; GLUCOSE,POINT OF CARE 114 MG/DL (70-110)
[2021-12-03 17:26] LABS: GLUCOMETER DEV NAME(LOC) 6N.2; GLUCOSE,POINT OF CARE 111 MG/DL (70-110)
[2021-12-03] MEDS: HydrALAZINE HCL 50 MG TABLET PO SCH (20:25)
[2021-12-03 20:51] LABS: GLUCOMETER DEV NAME(LOC) 6N.2; GLUCOSE,POINT OF CARE 109 MG/DL (70-110)
[2021-12-03] MEDS: CloNIDine HCL 0.1 MG TABLET PO PRN (22:29)
[2021-12-04 04:41] VITALS: BP 143/89
[2021-12-04 06:21] LABS: GLUCOMETER DEV NAME(LOC) 6N.2; GLUCOSE,POINT OF CARE 83 MG/DL (70-110)
[2021-12-04] MEDS: OXYGEN THERAPY IH SCH ×2 (08:00→20:00)
[2021-12-04 08:46] VITALS: BP 153/92
[2021-12-04] MEDS: ISOSORBIDE MONONITRATE 60 MG ER TABLET PO SCH (09:19)
[2021-12-04] MEDS: MetFORMIN HCL 500 MG TABLET PO SCH (09:20)
[2021-12-04] MEDS: HydrALAZINE HCL 50 MG TABLET PO SCH ×2 (09:20→20:29)
[2021-12-04] MEDS: METOPROLOL TARTRATE 50 MG TABLET PO SCH ×2 (09:20→20:29)
[2021-12-04] MEDS: ASPIRIN 81 MG CHEWABLE TABLET PO SCH (09:20)
[2021-12-04 09:21] LABS: CALCIUM, TOTAL 8.3 mg/dL (8.8-10.5); CREATININE 4.09 mg/dL (0.60-1.30)
[2021-12-04] MEDS: INSULIN GLARGINE,HUM.REC.ANLOG 100 UNITS/ML SQ SCH ×2 (09:35→20:59)
[2021-12-04 12:02] LABS: GLUCOMETER DEV NAME(LOC) 6N.2; GLUCOSE,POINT OF CARE 100 MG/DL (70-110)
[2021-12-04] MEDS: CefTRIAXone 1 GM/DEXTROSE 50 ML IV SCH (12:03)
[2021-12-04] MEDS ORDERED: SODIUM CHLORIDE 0.9% 1,000 ML ONE (12:09)
[2021-12-04] MEDS ORDERED: SODIUM CHLORIDE 0.9% 1,000 ML IV SCH (12:15)
[2021-12-04 17:31] LABS: GLUCOMETER DEV NAME(LOC) 6N.2; GLUCOSE,POINT OF CARE 99 MG/DL (70-110)
[2021-12-04 20:02] VITALS: BP 175/92
[2021-12-04 21:21] LABS: GLUCOMETER DEV NAME(LOC) 6N.2; GLUCOSE,POINT OF CARE 130 MG/DL (70-110)
[2021-12-04 23:30] VITALS: BP 169/95
[2021-12-04] MEDS: CloNIDine HCL 0.1 MG TABLET PO PRN (23:36)
[2021-12-05 05:24] VITALS: BP 148/78
[2021-12-05 05:51] LABS: GLUCOMETER DEV NAME(LOC) 6N.2; GLUCOSE,POINT OF CARE 87 MG/DL (70-110)
[2021-12-05 07:29] LABS: BASOPHILS % (AUTO) 0.3 % (0.0-2.0); HEMATOCRIT 32.9 % (41-53); HEMOGLOBIN 11.2 g/dL (13.5-17.5); LYMPHOCYTES # (AUTO) 1.4 K/uL (1.0-4.8); LYMPHOCYTES % (AUTO) 20.4 % (22.0-44.0); MEAN CORPUSCULAR HEMOGLOBIN 29.5 pg (26.0-34.0); MEAN CORPUSCULAR VOLUME 87 fL (80-100); MONOCYTES # (AUTO) 0.7 K/uL (0.1-1.0); MONOCYTES % (AUTO) 9.4 % (2.0-9.0); NEUTROPHILS # (AUTO) 4.7 K/uL (1.8-7.7); NEUTROPHILS % (AUTO) 66.9 % (40.0-70.0); PLATELET COUNT (AUTO) 363 K/uL (150-450); RED BLOOD CELL COUNT(AUTO) 3.78 MIL/uL (4.50-5.90); RED CELL DISTRIBUTION WIDTH 12.8 % (11.5-14.5)
[2021-12-05 07:33] LABS: HEMOGLOBIN A1C 11.4 % (3.8-5.6)
[2021-12-05 07:52] LABS: CALCIUM, TOTAL 8.4 mg/dL (8.8-10.5); CHOL/HDL RATIO 4.3 (4.2-7.3); CREATININE 3.98 mg/dL (0.60-1.30); MAGNESIUM 2.1 mg/dL (1.80-2.40); PHOSPHORUS 4.6 mg/dL (2.5-4.9); POTASSIUM 4.4 mmol/L (3.5-5.1)
[2021-12-05] MEDS: OXYGEN THERAPY IH SCH ×2 (08:00→20:00)
[2021-12-05 08:01] VITALS: BP 153/89
[2021-12-05] MEDS: ISOSORBIDE MONONITRATE 60 MG ER TABLET PO SCH (08:21)
[2021-12-05] MEDS: HydrALAZINE HCL 50 MG TABLET PO SCH ×2 (08:21→20:46)
[2021-12-05] MEDS: ASPIRIN 81 MG CHEWABLE TABLET PO SCH (08:22)
[2021-12-05] MEDS: METOPROLOL TARTRATE 50 MG TABLET PO SCH ×2 (08:22→20:46)
[2021-12-05] MEDS: INSULIN GLARGINE,HUM.REC.ANLOG 100 UNITS/ML SQ SCH ×2 (08:25→20:50)
[2021-12-05 10:58] VITALS: BP 156/86
[2021-12-05] MEDS: CefTRIAXone 1 GM/DEXTROSE 50 ML IV SCH (11:53)
[2021-12-05 12:32] LABS: APPEARANCE,URINE CLEAR (CLEAR); BILIRUBIN,URINE NEGATIVE (NEGATIVE); GLUCOSE, URINE (UA) NEGATIVE (NEGATIVE); KETONES,URINE NEGATIVE (NEGATIVE); LEUKOCYTE ESTERASE ,URINE NEGATIVE (NEGATIVE); NITRATE,URINE NEGATIVE (NEGATIVE); OCCULT BLOOD,URINE NEGATIVE (NEGATIVE); PROTEIN,URINE SEE CONFIRM (NEGATIVE); UROBILINOGEN,URINE 0.2 mg/dL (<=1.0)
[2021-12-05 12:40] LABS: SULFOSALICYLIC ACID,URINE Trace (Negative)
[2021-12-05 12:42] LABS: BACTERIA,URINE None Seen /HPF (None Seen); RBC,URINE None Seen /HPF (0-2); SQUAMOUS EPITHELIAL CELL,UR Few /LPF (None Seen); WBC,URINE None Seen /HPF (0-5)
[2021-12-05 15:40] VITALS: BP 169/94
[2021-12-05 17:56] LABS: GLUCOMETER DEV NAME(LOC) 6N.2; GLUCOSE,POINT OF CARE 104 MG/DL (70-110)
[2021-12-05 17:56] LABS: GLUCOMETER DEV NAME(LOC) 6N.2; GLUCOSE,POINT OF CARE 122 MG/DL (70-110)
[2021-12-05 20:18] VITALS: BP 176/98
[2021-12-05 21:06] LABS: GLUCOMETER DEV NAME(LOC) 6N.2; GLUCOSE,POINT OF CARE 137 MG/DL (70-110)
[2021-12-05 23:18] VITALS: BP 167/93
[2021-12-05] MEDS: CloNIDine HCL 0.1 MG TABLET PO PRN (23:20)
[2021-12-06] MEDS: ISOSORBIDE MONONITRATE 60 MG ER TABLET PO SCH (05:40)
[2021-12-06 05:46] VITALS: BP 172/95
[2021-12-06 06:16] LABS: BASOPHILS % (AUTO) 0.4 % (0.0-2.0); EOSINOPHILS % (AUTO) 3.1 % (1.0-6.0); HEMATOCRIT 33.4 % (41-53); HEMOGLOBIN 11.4 g/dL (13.5-17.5); LYMPHOCYTES # (AUTO) 1.5 K/uL (1.0-4.8); LYMPHOCYTES % (AUTO) 21.4 % (22.0-44.0); MEAN CORPUSCULAR HEMOGLOBIN 29.9 pg (26.0-34.0); MEAN CORPUSCULAR HGB CONC 34.1 G/dL (31.0-37.0); MEAN CORPUSCULAR VOLUME 88 fL (80-100); MONOCYTES # (AUTO) 0.7 K/uL (0.1-1.0); NEUTROPHILS # (AUTO) 4.6 K/uL (1.8-7.7); NEUTROPHILS % (AUTO) 65.1 % (40.0-70.0); PLATELET COUNT (AUTO) 372 K/uL (150-450); RED BLOOD CELL COUNT(AUTO) 3.81 MIL/uL (4.50-5.90); RED CELL DISTRIBUTION WIDTH 13.2 % (11.5-14.5)
[2021-12-06 06:36] LABS: ALBUMIN 2.5 g/dL (3.4-5.0); BILIRUBIN,TOTAL 0.3 mg/dL (0.1-1.0); CALCIUM, TOTAL 8.9 mg/dL (8.8-10.5); CREATININE 4.06 mg/dL (0.60-1.30); PHOSPHORUS 5.1 mg/dL (2.5-4.9); POTASSIUM 5.1 mmol/L (3.5-5.1); TOTAL PROTEIN, SERUM 6.8 g/dL (6.4-8.2)
[2021-12-06 06:45] VITALS: BP 147/87
[2021-12-06 06:56] LABS: GLUCOMETER DEV NAME(LOC) 6N.2; GLUCOSE,POINT OF CARE 91 MG/DL (70-110)
[2021-12-06 08:00] VITALS: BP 141/81
[2021-12-06] MEDS: ASPIRIN 81 MG CHEWABLE TABLET PO SCH (08:08)
[2021-12-06] MEDS: INSULIN GLARGINE,HUM.REC.ANLOG 100 UNITS/ML SQ SCH ×2 (08:08→21:06)
[2021-12-06] MEDS: HydrALAZINE HCL 50 MG TABLET PO SCH ×2 (08:09→21:00)
[2021-12-06] MEDS: METOPROLOL TARTRATE 50 MG TABLET PO SCH ×2 (08:09→20:59)
[2021-12-06] MEDS: CefTRIAXone 1 GM/DEXTROSE 50 ML IV SCH (11:37)
[2021-12-06] MEDS: INSULIN LISPRO 100 UNITS/ML SQ PRN ×2 (11:37→21:08)
[2021-12-06] MEDS ORDERED: SODIUM CHLORIDE 0.9% 250 ML IV ONE (11:38)
[2021-12-06 15:49] VITALS: BP 177/97
[2021-12-06] MEDS: CloNIDine HCL 0.1 MG TABLET PO PRN (15:57)
[2021-12-06 19:50] VITALS: BP 171/91
[2021-12-06 19:51] LABS: GLUCOMETER DEV NAME(LOC) 6N.2; GLUCOSE,POINT OF CARE 106 MG/DL (70-110)
[2021-12-06 19:51] LABS: GLUCOMETER DEV NAME(LOC) 6N.2; GLUCOSE,POINT OF CARE 114 MG/DL (70-110)
[2021-12-06 22:00] VITALS: BP 148/74
[2021-12-06 23:06] LABS: GLUCOMETER DEV NAME(LOC) 6N.1; GLUCOSE,POINT OF CARE 173 MG/DL (70-110)
[2021-12-07 04:40] VITALS: BP 147/79
[2021-12-07 06:56] LABS: GLUCOMETER DEV NAME(LOC) 6N.2; GLUCOSE,POINT OF CARE 82 MG/DL (70-110)
[2021-12-07 07:24] LABS: BASOPHILS % (AUTO) 0.2 % (0.0-2.0); EOSINOPHILS % (AUTO) 2.9 % (1.0-6.0); HEMATOCRIT 32.1 % (41-53); HEMOGLOBIN 10.8 g/dL (13.5-17.5); LYMPHOCYTES # (AUTO) 1.2 K/uL (1.0-4.8); LYMPHOCYTES % (AUTO) 18.4 % (22.0-44.0); MEAN CORPUSCULAR HEMOGLOBIN 29.4 pg (26.0-34.0); MEAN CORPUSCULAR HGB CONC 33.5 G/dL (31.0-37.0); MEAN CORPUSCULAR VOLUME 88 fL (80-100); MONOCYTES # (AUTO) 0.6 K/uL (0.1-1.0); MONOCYTES % (AUTO) 9.9 % (2.0-9.0); NEUTROPHILS # (AUTO) 4.4 K/uL (1.8-7.7); NEUTROPHILS % (AUTO) 68.6 % (40.0-70.0); PLATELET COUNT (AUTO) 354 K/uL (150-450); RED BLOOD CELL COUNT(AUTO) 3.66 MIL/uL (4.50-5.90); RED CELL DISTRIBUTION WIDTH 13.1 % (11.5-14.5)
[2021-12-07 07:32] LABS: CALCIUM, TOTAL 8.4 mg/dL (8.8-10.5); CREATININE 4.07 mg/dL (0.60-1.30)
[2021-12-07 08:33] VITALS: BP 157/94
[2021-12-07] MEDS: ISOSORBIDE MONONITRATE 60 MG ER TABLET PO SCH (08:45)
[2021-12-07] MEDS: HydrALAZINE HCL 50 MG TABLET PO SCH ×2 (08:45→20:11)
[2021-12-07] MEDS: METOPROLOL TARTRATE 50 MG TABLET PO SCH ×2 (08:46→20:10)
[2021-12-07] MEDS: ASPIRIN 81 MG CHEWABLE TABLET PO SCH (08:46)
[2021-12-07] MEDS: INSULIN GLARGINE,HUM.REC.ANLOG 100 UNITS/ML SQ SCH ×2 (08:48→20:13)
[2021-12-07] MEDS: CefTRIAXone 1 GM/DEXTROSE 50 ML IV SCH (11:38)
[2021-12-07 14:36] LABS: GLUCOMETER DEV NAME(LOC) 4E.2; GLUCOSE,POINT OF CARE 115 MG/DL (70-110)
[2021-12-07 16:26] VITALS: BP 187/105
[2021-12-07 19:46] LABS: GLUCOMETER DEV NAME(LOC) 6N.1; GLUCOSE,POINT OF CARE 114 MG/DL (70-110)
[2021-12-07 20:13] VITALS: BP 176/92
[2021-12-07 20:26] LABS: GLUCOMETER DEV NAME(LOC) 6N.1; GLUCOSE,POINT OF CARE 130 MG/DL (70-110)
[2021-12-07 21:10] VITALS: BP 153/84
[2021-12-08 05:01] VITALS: BP 137/69
[2021-12-08 06:52] LABS: BASOPHILS % (AUTO) 0.3 % (0.0-2.0); EOSINOPHILS % (AUTO) 3.7 % (1.0-6.0); HEMATOCRIT 32.8 % (41-53); HEMOGLOBIN 11.2 g/dL (13.5-17.5); LYMPHOCYTES # (AUTO) 1.6 K/uL (1.0-4.8); LYMPHOCYTES % (AUTO) 22.9 % (22.0-44.0); MEAN CORPUSCULAR HEMOGLOBIN 29.8 pg (26.0-34.0); MEAN CORPUSCULAR HGB CONC 34.2 G/dL (31.0-37.0); MEAN CORPUSCULAR VOLUME 87 fL (80-100); MONOCYTES # (AUTO) 0.7 K/uL (0.1-1.0); MONOCYTES % (AUTO) 10.2 % (2.0-9.0); NEUTROPHILS # (AUTO) 4.4 K/uL (1.8-7.7); NEUTROPHILS % (AUTO) 62.9 % (40.0-70.0); PLATELET COUNT (AUTO) 383 K/uL (150-450); RED BLOOD CELL COUNT(AUTO) 3.77 MIL/uL (4.50-5.90)
[2021-12-08 07:09] LABS: CALCIUM, TOTAL 8.7 mg/dL (8.8-10.5); CREATININE 4.03 mg/dL (0.60-1.30); MAGNESIUM 2.4 mg/dL (1.80-2.40); PHOSPHORUS 5.4 mg/dL (2.5-4.9); POTASSIUM 4.8 mmol/L (3.5-5.1)
[2021-12-08 07:36] LABS: GLUCOMETER DEV NAME(LOC) 4E.2; GLUCOSE,POINT OF CARE 92 MG/DL (70-110)
[2021-12-08 08:00] VITALS: BP 182/96
[2021-12-08] MEDS: ISOSORBIDE MONONITRATE 60 MG ER TABLET PO SCH (08:10)
[2021-12-08] MEDS: METOPROLOL TARTRATE 50 MG TABLET PO SCH (08:10)
[2021-12-08] MEDS: HydrALAZINE HCL 50 MG TABLET PO SCH (08:10)
[2021-12-08] MEDS: ASPIRIN 81 MG CHEWABLE TABLET PO SCH (08:11)
[2021-12-08] MEDS: INSULIN GLARGINE,HUM.REC.ANLOG 100 UNITS/ML SQ SCH (08:12)
[2021-12-08 09:10] VITALS: BP 133/69
[2021-12-08] MEDS: CefTRIAXone 1 GM/DEXTROSE 50 ML IV SCH (11:41)
[2021-12-08] MEDS: CloNIDine HCL 0.1 MG TABLET PO PRN (12:53)
[2021-12-08 13:21] LABS: GLUCOMETER DEV NAME(LOC) 6N.2; GLUCOSE,POINT OF CARE 102 MG/DL (70-110)
[2021-12-08 14:45] VITALS: BP 171/94
[2021-12-08 18:41] LABS: GLUCOMETER DEV NAME(LOC) 6N.2; GLUCOSE,POINT OF CARE 84 MG/DL (70-110)
== END 2021-12-08 18:04 | disposition home health service (06) | DRG 314 ==
LOC: EMS 22:56 → EEVIPCON 11-25 05:00 → 6N 11-25 05:00 → 4E 12-02 15:57 → 6S 12-06 16:21
PROVIDERS: ADMIT Internal Medicine; ATTEND Internal Medicine
PROC: 0Y6P0Z1 Detachment at Right 1st Toe, High, Open Approach (ICD-10-PCS; principal; 2021-11-26 07:45)
DX: E11.69 Type 2 diabetes mellitus with other specified complication (principal); N17.0 Acute kidney failure with tubular necrosis; M86.10 Other acute osteomyelitis, unspecified site; E11.40 Type 2 diabetes mellitus with diabetic neuropathy, unspecified; E11.52 Type 2 diabetes mellitus with diabetic peripheral angiopathy with gangrene; D64.9 Anemia, unspecified; E11.65 Type 2 diabetes mellitus with hyperglycemia; I25.10 Atherosclerotic heart disease of native coronary artery without angina pectoris; F17.210 Nicotine dependence, cigarettes, uncomplicated; E78.5 Hyperlipidemia, unspecified; I11.9 Hypertensive heart disease without heart failure; E78.00 Pure hypercholesterolemia, unspecified; E66.3 Overweight; Z20.822 Contact with and (suspected) exposure to COVID-19; Z82.49 Family history of ischemic heart disease and other diseases of the circulatory system; I25.2 Old myocardial infarction; Z83.3 Family history of diabetes mellitus; Z79.84 Long term (current) use of oral hypoglycemic drugs; Z79.899 Other long term (current) drug therapy; Z79.82 Long term (current) use of aspirin; Z79.4 Long term (current) use of insulin; Z68.33 Body mass index [BMI] 33.0-33.9, adult; Z91.018 Allergy to other foods
CPT/HCPCS: 71045; 76770; 80048; 80053; 80061; 80202; 81001; 81002; 82962; 83036; 83735; 84100; 85025; 87070; 87081; 87205; 88305; 99285; G0378; J0696; J1644; J1815; J2250; J2270; J2543; J2704; J2997; J3010; J3370; J3490; J7030; J7050; J7060; J7120; 36415-L1; 36415-TC; Z7610

== ENCOUNTER → 2021-12-10 | Outpatient (CLI) | payer MEDICAID ==
[~2021-12-10] MED LIST changes: -CLOP75TA60 PO; -LOSA-381 PO; -METF-1211 PO
== END | disposition home or self-care (01) ==
LOC: RADMN 14:35
PROVIDERS: ATTEND Podiatrist Foot & Ankle Surgery
DX: M25.474 Effusion, right foot (principal); M86.171 Other acute osteomyelitis, right ankle and foot; Z89.421 Acquired absence of other right toe(s); M77.31 Calcaneal spur, right foot
CPT/HCPCS: 73630-TC

== ENCOUNTER → 2021-12-25 | Outpatient (CLI) | payer MEDICAID ==
[2021-12-25 10:25] LABS: HEMOGLOBIN A1C 9.7 % (3.8-5.6)
[2021-12-25 10:31] LABS: APPEARANCE,URINE CLEAR (CLEAR); BILIRUBIN,URINE NEGATIVE (NEGATIVE); GLUCOSE, URINE (UA) TRACE mg/dL (NEGATIVE); KETONES,URINE NEGATIVE (NEGATIVE); NITRATE,URINE NEGATIVE (NEGATIVE); OCCULT BLOOD,URINE TRACE (NEGATIVE); PROTEIN,URINE 300-600,SEE CONFIRM mg/dL (NEGATIVE); SPECIFIC GRAVITIY, URINE 1.012 (1.003-1.030); UROBILINOGEN,URINE <=1.0 mg/dL (<=1.0)
[2021-12-25 10:40] LABS: ALBUMIN 3.5 g/dL (3.4-5.0); BILIRUBIN,TOTAL 0.3 mg/dL (0.1-1.0); CALCIUM, TOTAL 9.2 mg/dL (8.8-10.5); CHOL/HDL RATIO 2.6 (4.2-7.3); CREATININE 2.7 mg/dL (0.60-1.30); FREE T4 (FREE THYROXINE) 1.19 ng/dL (0.76-1.46); MAGNESIUM 1.8 mg/dL (1.80-2.40); PHOSPHORUS 4.5 mg/dL (2.5-4.9); POTASSIUM 4.5 mmol/L (3.5-5.1); THYROID STIMULATING HORMONE 4.31 uIU/mL (0.36-3.74)
[2021-12-25 10:50] LABS: RED BLOOD CELL COUNT(AUTO) 4.13 MIL/uL (4.50-5.90)
[2021-12-25 10:51] LABS: BASOPHILS % (AUTO) 0.3 % (0.0-2.0); EOSINOPHILS % (AUTO) 4.8 % (1.0-6.0); HEMATOCRIT 35.8 % (41-53); HEMOGLOBIN 11.9 g/dL (13.5-17.5); LYMPHOCYTES # (AUTO) 1.8 K/uL (1.0-4.8); LYMPHOCYTES % (AUTO) 23.8 % (22.0-44.0); MEAN CORPUSCULAR HGB CONC 33.4 G/dL (31.0-37.0); MEAN CORPUSCULAR VOLUME 87 fL (80-100); MONOCYTES # (AUTO) 0.7 K/uL (0.1-1.0); MONOCYTES % (AUTO) 8.8 % (2.0-9.0); NEUTROPHILS # (AUTO) 4.7 K/uL (1.8-7.7); NEUTROPHILS % (AUTO) 62.3 % (40.0-70.0); PLATELET COUNT (AUTO) 319 K/uL (150-450)
[2021-12-25 11:11] LABS: CREATININE,URINE RANDOM 61.7 mg/dL (30.0-125.0)
[2021-12-25 11:36] LABS: LEUKOCYTE ESTERASE ,URINE SMALL (NEGATIVE)
[2021-12-25 11:37] LABS: BACTERIA,URINE None Seen /HPF (None Seen); RBC,URINE 0-2 /HPF (0-2); SULFOSALICYLIC ACID,URINE 3+ (Negative)
== END | disposition home or self-care (01) ==
LOC: LABMN 09:28
PROVIDERS: ATTEND Internal Medicine Cardiovascular Disease
DX: I11.0 Hypertensive heart disease with heart failure (principal); I50.9 Heart failure, unspecified; E11.8 Type 2 diabetes mellitus with unspecified complications; D56.5 Hemoglobin E-beta thalassemia; I10 Essential (primary) hypertension; E55.9 Vitamin D deficiency, unspecified; E78.00 Pure hypercholesterolemia, unspecified
CPT/HCPCS: 80053; 80061; 80069; 81001; 81002; 82043; 82306; 82570; 83036; 83735; 83880; 84439; 84443; 84480; 85025

== ENCOUNTER → 2022-08-17 | Outpatient (CLI) | payer MEDICAID ==
[~2022-08-17] MED LIST changes: -INSLAN SQ; -INSU100V SQ; -METO50 PO
[2022-08-17 10:18] LABS: BASOPHILS % (AUTO) 0.2 % (0.0-2.0); EOSINOPHILS % (AUTO) 2.2 % (1.0-6.0); HEMATOCRIT 38.3 % (41-53); HEMOGLOBIN 13.2 g/dL (13.5-17.5); LYMPHOCYTES # (AUTO) 2.5 K/uL (1.0-4.8); LYMPHOCYTES % (AUTO) 28.1 % (22.0-44.0); MEAN CORPUSCULAR HEMOGLOBIN 30.3 pg (26.0-34.0); MEAN CORPUSCULAR HGB CONC 34.4 G/dL (31.0-37.0); MEAN CORPUSCULAR VOLUME 88 fL (80-100); MONOCYTES # (AUTO) 0.7 K/uL (0.1-1.0); MONOCYTES % (AUTO) 8.5 % (2.0-9.0); NEUTROPHILS # (AUTO) 5.4 K/uL (1.8-7.7); PLATELET COUNT (AUTO) 319 K/uL (150-450); RED BLOOD CELL COUNT(AUTO) 4.36 MIL/uL (4.50-5.90); RED CELL DISTRIBUTION WIDTH 13.6 % (11.5-14.5)
[2022-08-17 10:59] LABS: HEMOGLOBIN A1C 9.5 % (3.8-5.6)
[2022-08-17 11:18] LABS: ALBUMIN 2.6 g/dL (3.4-5.0); BILIRUBIN,TOTAL 0.3 mg/dL (0.1-1.0); CHOL/HDL RATIO 3.3 (4.2-7.3); CREATININE 1.6 mg/dL (0.60-1.30); MAGNESIUM 2.1 mg/dL (1.80-2.40); POTASSIUM 3.6 mmol/L (3.5-5.1); TOTAL PROTEIN, SERUM 6.5 g/dL (6.4-8.2)
[2022-08-17 11:45] LABS: FREE T4 (FREE THYROXINE) 1.04 ng/dL (0.76-1.46); THYROID STIMULATING HORMONE 2.63 uIU/mL (0.36-3.74)
== END | disposition home or self-care (01) ==
LOC: LABMN 09:23
PROVIDERS: ATTEND Internal Medicine Nephrology
DX: I11.0 Hypertensive heart disease with heart failure (principal); I50.9 Heart failure, unspecified; E11.8 Type 2 diabetes mellitus with unspecified complications; E78.00 Pure hypercholesterolemia, unspecified; D56.5 Hemoglobin E-beta thalassemia
CPT/HCPCS: 80053; 80061; 83036; 83735; 83880; 84439; 84443; 84480; 85025

== ENCOUNTER → 2023-06-17 | Outpatient (CLI) | payer OTHER ==
[2023-06-17 10:47] LABS: BASOPHILS % (AUTO) 0.5 % (0.0-2.0); EOSINOPHILS % (AUTO) 3.4 % (1.0-6.0); HEMATOCRIT 36.9 % (41-53); HEMOGLOBIN 12.5 g/dL (13.5-17.5); LYMPHOCYTES # (AUTO) 2.4 K/uL (1.0-4.8); LYMPHOCYTES % (AUTO) 23.2 % (22.0-44.0); MEAN CORPUSCULAR HEMOGLOBIN 29.9 pg (26.0-34.0); MEAN CORPUSCULAR HGB CONC 33.9 G/dL (31.0-37.0); MEAN CORPUSCULAR VOLUME 88 fL (80-100); MONOCYTES # (AUTO) 0.7 K/uL (0.1-1.0); MONOCYTES % (AUTO) 6.9 % (2.0-9.0); NEUTROPHILS # (AUTO) 6.9 K/uL (1.8-7.7); PLATELET COUNT (AUTO) 273 K/uL (150-450); RED BLOOD CELL COUNT(AUTO) 4.18 MIL/uL (4.50-5.90); RED CELL DISTRIBUTION WIDTH 13.8 % (11.5-14.5)
[2023-06-17 11:10] LABS: ALBUMIN 2.4 g/dL (3.4-5.0); BILIRUBIN,TOTAL 0.3 mg/dL (0.1-1.0); CALCIUM, TOTAL 8.7 mg/dL (8.8-10.5); CREATININE 2.42 mg/dL (0.60-1.30); FREE T4 (FREE THYROXINE) 0.97 ng/dL (0.76-1.46); POTASSIUM 3.9 mmol/L (3.5-5.1); THYROID STIMULATING HORMONE 4.03 uIU/mL (0.36-3.74); TOTAL PROTEIN, SERUM 6.2 g/dL (6.4-8.2)
== END | disposition home or self-care (01) ==
LOC: LABMN 09:35
PROVIDERS: ATTEND Internal Medicine Cardiovascular Disease
DX: I11.0 Hypertensive heart disease with heart failure (principal); I50.9 Heart failure, unspecified; E78.00 Pure hypercholesterolemia, unspecified; D56.5 Hemoglobin E-beta thalassemia; E11.8 Type 2 diabetes mellitus with unspecified complications; E55.9 Vitamin D deficiency, unspecified
CPT/HCPCS: 80053; 80061; 82306; 83036; 83735; 83880; 84439; 84443; 84480; 85025; 36415-L1; 36415-TC

== ENCOUNTER → 2023-11-04 | Outpatient (CLI) | payer OTHER ==
[2023-11-04 10:56] LABS: BASOPHILS % (AUTO) 0.2 % (0.0-2.0); EOSINOPHILS % (AUTO) 2.8 % (1.0-6.0); HEMATOCRIT 35.8 % (41-53); HEMOGLOBIN 12.3 g/dL (13.5-17.5); LYMPHOCYTES # (AUTO) 1.9 K/uL (1.0-4.8); LYMPHOCYTES % (AUTO) 18.2 % (22.0-44.0); MEAN CORPUSCULAR HEMOGLOBIN 30.3 pg (26.0-34.0); MEAN CORPUSCULAR HGB CONC 34.3 G/dL (31.0-37.0); MEAN CORPUSCULAR VOLUME 88 fL (80-100); MONOCYTES # (AUTO) 0.8 K/uL (0.1-1.0); MONOCYTES % (AUTO) 7.5 % (2.0-9.0); NEUTROPHILS # (AUTO) 7.5 K/uL (1.8-7.7); NEUTROPHILS % (AUTO) 71.3 % (40.0-70.0); PLATELET COUNT (AUTO) 311 K/uL (150-450); RED BLOOD CELL COUNT(AUTO) 4.06 MIL/uL (4.50-5.90); RED CELL DISTRIBUTION WIDTH 13.7 % (11.5-14.5); WHITE BLOOD COUNT (AUTO) 10.5 K/uL (4.5-11.0)
[2023-11-04 11:11] LABS: ALBUMIN 2.8 g/dL (3.4-5.0); CALCIUM, TOTAL 8.4 mg/dL (8.8-10.5); CHOL/HDL RATIO 2.8 (4.2-7.3); CREATININE 3.44 mg/dL (0.60-1.30); MAGNESIUM 2.1 mg/dL (1.80-2.40); PHOSPHORUS 4.3 mg/dL (2.5-4.9); POTASSIUM 3.7 mmol/L (3.5-5.1)
[2023-11-04 11:38] LABS: APPEARANCE,URINE CLEAR (CLEAR); BILIRUBIN,URINE NEGATIVE (NEGATIVE); COLOR,URINE LIGHT YELLOW (YELLOW); GLUCOSE, URINE (UA) >=1000 mg/dL (NEGATIVE); KETONES,URINE NEGATIVE (NEGATIVE); LEUKOCYTE ESTERASE ,URINE NEGATIVE (NEGATIVE); NITRATE,URINE NEGATIVE (NEGATIVE); OCCULT BLOOD,URINE SMALL (NEGATIVE); PROTEIN,URINE 300-600,SEE CONFIRM mg/dL (NEGATIVE); UROBILINOGEN,URINE <=1.0 mg/dL (<=1.0)
[2023-11-04 11:53] LABS: CREATININE,URINE RANDOM 78.6 mg/dL (30.0-125.0); PROTEIN,URINE RANDOM 443 mg/dL (0-11.9)
[2023-11-04 12:20] LABS: BACTERIA,URINE None Seen /HPF (None Seen); RBC,URINE 0-2 /HPF (0-2); SQUAMOUS EPITHELIAL CELL,UR Few /LPF (None Seen); SULFOSALICYLIC ACID,URINE 3+ (Negative); WBC,URINE None Seen /HPF (0-5)
[2023-11-05 09:07] LABS: CREATININE, URINE (mALB) 78.2 mg/dL (Not Estab.)
== END | disposition home or self-care (01) ==
LOC: LABMN 10:32
PROVIDERS: ATTEND Internal Medicine Nephrology
DX: I12.9 Hypertensive chronic kidney disease with stage 1 through stage 4 chronic kidney disease, or unspecified chronic kidney disease (principal); E11.22 Type 2 diabetes mellitus with diabetic chronic kidney disease; N18.31 Chronic kidney disease, stage 3a; I25.10 Atherosclerotic heart disease of native coronary artery without angina pectoris; E78.2 Mixed hyperlipidemia
CPT/HCPCS: 80061; 80069; 81001; 81002; 82043; 82570; 83735; 84156; 85025

== ENCOUNTER → 2024-02-07 | Outpatient (CLI) | payer OTHER ==
[2024-02-07 11:20] LABS: BASOPHILS % (AUTO) 0.1 % (0.0-2.0); EOSINOPHILS % (AUTO) 4.3 % (1.0-6.0); HEMATOCRIT 33.6 % (41-53); HEMOGLOBIN 11.3 g/dL (13.5-17.5); LYMPHOCYTES # (AUTO) 2.2 K/uL (1.0-4.8); LYMPHOCYTES % (AUTO) 24.5 % (22.0-44.0); MEAN CORPUSCULAR HEMOGLOBIN 30.2 pg (26.0-34.0); MEAN CORPUSCULAR HGB CONC 33.5 G/dL (31.0-37.0); MEAN CORPUSCULAR VOLUME 90 fL (80-100); MONOCYTES # (AUTO) 0.8 K/uL (0.1-1.0); MONOCYTES % (AUTO) 9.2 % (2.0-9.0); NEUTROPHILS # (AUTO) 5.6 K/uL (1.8-7.7); NEUTROPHILS % (AUTO) 61.9 % (40.0-70.0); PLATELET COUNT (AUTO) 258 K/uL (150-450); RED BLOOD CELL COUNT(AUTO) 3.72 MIL/uL (4.50-5.90); RED CELL DISTRIBUTION WIDTH 14.3 % (11.5-14.5)
[2024-02-07 11:35] LABS: APPEARANCE,URINE CLEAR (CLEAR); BILIRUBIN,URINE NEGATIVE (NEGATIVE); COLOR,URINE LIGHT YELLOW (YELLOW); GLUCOSE, URINE (UA) 300-500 mg/dL (NEGATIVE); KETONES,URINE NEGATIVE (NEGATIVE); LEUKOCYTE ESTERASE ,URINE NEGATIVE (NEGATIVE); NITRATE,URINE NEGATIVE (NEGATIVE); OCCULT BLOOD,URINE SMALL (NEGATIVE); PROTEIN,URINE 300-600,SEE CONFIRM mg/dL (NEGATIVE); SPECIFIC GRAVITIY, URINE 1.012 (1.003-1.030); UROBILINOGEN,URINE <=1.0 mg/dL (<=1.0)
[2024-02-07 11:48] LABS: CREATININE,URINE RANDOM 70.6 mg/dL (30.0-125.0); MAGNESIUM,URINE RANDOM 2.7 mg/dL (1.0-13.0)
[2024-02-07 11:59] LABS: PROTEIN,URINE RANDOM 626 mg/dL (0-11.9)
[2024-02-07 12:00] LABS: ALBUMIN 2.8 g/dL (3.4-5.0); CALCIUM, TOTAL 8.1 mg/dL (8.8-10.5); CREATININE 3.53 mg/dL (0.60-1.30); POTASSIUM 4.4 mmol/L (3.5-5.1)
[2024-02-07 12:23] LABS: CHOL/HDL RATIO 2.6 (4.2-7.3); PHOSPHORUS 5.3 mg/dL (2.5-4.9)
[2024-02-07 12:50] LABS: BACTERIA,URINE None Seen /HPF (None Seen); RBC,URINE 0-2 /HPF (0-2); SQUAMOUS EPITHELIAL CELL,UR Few /LPF (None Seen); SULFOSALICYLIC ACID,URINE 3+ (Negative); WBC,URINE None Seen /HPF (0-5)
[2024-02-08 06:06] LABS: PARATHYROID HORMONE INTACT 152 pg/mL (15-65)
[2024-02-08 13:06] LABS: CREATININE, URINE (mALB) 71.1 mg/dL (Not Estab.)
== END | disposition home or self-care (01) ==
LOC: LABMN 10:16
PROVIDERS: ATTEND Internal Medicine Nephrology
DX: E11.22 Type 2 diabetes mellitus with diabetic chronic kidney disease (principal); I12.9 Hypertensive chronic kidney disease with stage 1 through stage 4 chronic kidney disease, or unspecified chronic kidney disease; N18.4 Chronic kidney disease, stage 4 (severe); D63.1 Anemia in chronic kidney disease; I25.10 Atherosclerotic heart disease of native coronary artery without angina pectoris; E78.49 Other hyperlipidemia; R80.1 Persistent proteinuria, unspecified
CPT/HCPCS: 80061; 80069; 81001; 81002; 82043; 82306; 82570; 83036; 83735; 83970; 84156; 85025

== ENCOUNTER → 2024-04-14 | Outpatient (CLI) | payer MEDICAID ==
[2024-04-14 09:56] LABS: BASOPHILS % (AUTO) 0.2 % (0.0-2.0); EOSINOPHILS % (AUTO) 4.5 % (1.0-6.0); HEMATOCRIT 36.7 % (41-53); LYMPHOCYTES # (AUTO) 1.8 K/uL (1.0-4.8); LYMPHOCYTES % (AUTO) 21.2 % (22.0-44.0); MEAN CORPUSCULAR HEMOGLOBIN 29.3 pg (26.0-34.0); MEAN CORPUSCULAR HGB CONC 32.7 G/dL (31.0-37.0); MEAN CORPUSCULAR VOLUME 90 fL (80-100); MONOCYTES # (AUTO) 0.7 K/uL (0.1-1.0); MONOCYTES % (AUTO) 8.6 % (2.0-9.0); NEUTROPHILS # (AUTO) 5.6 K/uL (1.8-7.7); NEUTROPHILS % (AUTO) 65.5 % (40.0-70.0); PLATELET COUNT (AUTO) 275 K/uL (150-450); RED BLOOD CELL COUNT(AUTO) 4.09 MIL/uL (4.50-5.90); RED CELL DISTRIBUTION WIDTH 13.8 % (11.5-14.5); WHITE BLOOD COUNT (AUTO) 8.5 K/uL (4.5-11.0)
[2024-04-14 10:14] LABS: APPEARANCE,URINE CLEAR (CLEAR); BILIRUBIN,URINE NEGATIVE (NEGATIVE); COLOR,URINE LIGHT YELLOW (YELLOW); GLUCOSE, URINE (UA) 300-500 mg/dL (NEGATIVE); KETONES,URINE NEGATIVE (NEGATIVE); LEUKOCYTE ESTERASE ,URINE NEGATIVE (NEGATIVE); NITRATE,URINE NEGATIVE (NEGATIVE); OCCULT BLOOD,URINE SMALL (NEGATIVE); PROTEIN,URINE 300-600,SEE CONFIRM mg/dL (NEGATIVE); SPECIFIC GRAVITIY, URINE 1.011 (1.003-1.030); UROBILINOGEN,URINE <=1.0 mg/dL (<=1.0)
[2024-04-14 10:22] LABS: ALBUMIN 3.1 g/dL (3.4-5.0); CALCIUM, TOTAL 8.7 mg/dL (8.8-10.5); CREATININE 3.96 mg/dL (0.60-1.30); MAGNESIUM 2.2 mg/dL (1.80-2.40); PHOSPHORUS 5.9 mg/dL (2.5-4.9); POTASSIUM 3.9 mmol/L (3.5-5.1)
[2024-04-14 10:23] LABS: % IRON SATURATION 28.1 % (30-44)
[2024-04-14 10:37] LABS: SULFOSALICYLIC ACID,URINE 3+ (Negative)
[2024-04-14 10:38] LABS: BACTERIA,URINE None Seen /HPF (None Seen); WBC,URINE None Seen /HPF (0-5)
[2024-04-14 11:07] LABS: PROTEIN,URINE RANDOM 250 mg/dL (0-11.9)
[2024-04-14 12:11] LABS: FOLATE SERUM 9.2 ng/mL (5.4-)
[2024-04-15 08:06] LABS: PARATHYROID HORMONE INTACT 135 pg/mL (15-65)
[2024-04-15 08:06] LABS: CREATININE, URINE (mALB) 66.7 mg/dL (Not Estab.)
== END | disposition home or self-care (01) ==
LOC: LABMN 09:24
PROVIDERS: ATTEND Internal Medicine Nephrology
DX: E11.22 Type 2 diabetes mellitus with diabetic chronic kidney disease (principal); I12.9 Hypertensive chronic kidney disease with stage 1 through stage 4 chronic kidney disease, or unspecified chronic kidney disease; N18.4 Chronic kidney disease, stage 4 (severe); D63.1 Anemia in chronic kidney disease; E78.49 Other hyperlipidemia; E87.22 Chronic metabolic acidosis; R80.1 Persistent proteinuria, unspecified
CPT/HCPCS: 80069; 81001; 81002; 82043; 82306; 82570; 82607; 82728; 82746; 83540; 83550; 83735; 83970; 84156; 85025